=== PATIENT | female | born 1950 | race Caucasian/White ===

== ENCOUNTER 2016-08-30 15:42 | Inpatient (IN) | payer OTHER ==
--- NOTE | 2016-08-30 16:52 | EDPHY ---
H & P Stated Complaint: SOB Source: Patient Exam Limitations: No limitations - Medical/Surgical History Other PMH: CVA 8 years ago - Social History Smoking Status: Current every day smoker Tobacco Use: Greater than 1 pack/day Alcohol Use: Rarely Drug Use: Marijuana Time Seen by Provider: 08/30/16 16:15 HPI/ROS: CHIEF COMPLAINT: shortness of breath on exertion HISTORY OF PRESENT ILLNESS: 66-year-old female presents emergency department sent from her doctor's office for room air oxygen saturations of 85%. Patient reports shortness of breath for the past 3-4 days. Patient drove straight from [place] arriving 3 days ago. Patient reports a chronic cough from smoking that is worse over the past few weeks. She drove to [place] 1 month ago, was seen for a right lower leg pain in the emergency department in [place] 3 weeks ago and given naproxen, no studies were done. Patient smokes 1 pack of cigarettes per day, she has a history of a CVA 10-15 years ago, her only medication is simvastatin, she does not wear oxygen at home. Patient denies fevers or chills , no body aches, no nasal congestion, sore throat, ear pain. She denies chest pain. No orthopnea, no leg swelling. She denies nausea or vomiting, no abdominal pain, no diarrhea. REVIEW OF SYSTEMS: A comprehensive 10 point review of systems is otherwise negative aside from elements mentioned in the history of present illness. (Rochelle Carlton) - Medical/Surgical History PMH: CVA in 2004 (Rochelle Carlton) - Physical Exam Exam: Physical Exam Gen: Alert and Oriented, NAD HEENT: PERRL, moist mucous membranes NECK: no meningismus CV: Tachycardic rate and regular rhythm, systolic murmur PULM: Rhonchi and diminished throughout, worse on right ABDOMEN: soft, non tender to palpation, BS present BACK: No CVA tenderness NEURO: Neurologically grossly intact EXTREMITIES: normal appearing, no calf swelling, no tenderness to palpation, no cords, 2+ pedal pulses, sensation intact to light touch SKIN: no rash or break in skin on exposed skin PSYCH: answers questions appropriately. (Rochelle Carlton) Constitutional: Initial Vital Signs Temperature (C) 37 C 08/30/16 15:42 Heart Rate 110 H 08/30/16 15:42 Respiratory Rate 28 H 08/30/16 15:42 Blood Pressure 107/68 08/30/16 15:42 O2 Sat (%) 85 L 08/30/16 15:42 O2 Delivery Mode Room Air O2 (L/minute) 2 Allergies/Adverse Reactions: No Known Allergies Allergy (Unverified 03/09/14 12:03) Home Medications: Medication Instructions Recorded Aspirin [Aspirin 325 mg (OTC)] 325 mg PO DAILY 03/09/14 ALPRAZolam [Xanax 0.25 MG (*)] 0.25 mg PO BID PRN 08/30/16 Hydrocodone/Acetaminophen [[place] 1 each PO DAILY PRN 08/30/16 5/325 (*)] Simvastatin [Zocor] 40 mg PO HS 08/30/16 Venlafaxine HCl [Venlafaxine HCl 150 mg PO DAILY 08/30/16 ER] Medical Decision Making - Diagnostics Imaging: Discussed imaging studies w/ house calls nurse practitioner Radiologist, I viewed and interpreted images myself - Diagnostics EKG Interpretation: EKG with sinus tachycardia, rate 100, nonspecific T-wave abnormalities in anterior lateral leads, compared to EKG in 2014 there are no changes. (Rochelle Carlton) Imaging Results: Imaging Impressions Chest X-Ray 08/30/16 00:00 Impression: Dense right lower lobe consolidation and probable underlying effusion. Pneumonia versus mass versus atelectasis. ED Course/Re-evaluation: Patient comes in with an oxygen tank from her primary care doctor's office. She is on 3 L nasal cannula with oxygen saturations of 91%. IV established, CBC , chemistry panel, troponin, BMP, EKG, chest x-ray ordered. 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 1740- Pt admitted to Dr. Fong for a right lower lobe effusion and consolidation with hypoxia. CBC is unremarkable with a normal white count. CT chest- Impression: 1. Large right hilar mass contiguous with conglomerate mediastinal adenopathy, consistent with malignancy, most likely primary lung cancer. The bronchus intermedius is occluded, with complete right middle and lower lobe consolidation that could be related to atelectasis and/or postobstructive pneumonia. 2. Large right pleural effusion, with probable pulmonary edema in the right upper lobe, with patchy consolidation that could be related to pneumonia, asymmetric edema, or atelectasis. 3. No visible pulmonary embolus. 4. 4 mm left lower lobe nodule, new since 2007. Attention is recommended on follow up. I spoke with the patient and her daughter about these results, she will be admitted the hospital for further evaluation. 1 g of Invanz has been ordered. ( Rochelle Carlton) Differential Diagnosis: Diagnosis considered but not limited to pneumonia, effusion, malignancy, COPD ( Rochelle Carlton) Other Provider: This patient was evaluated and managed by the nurse practitioner. I have reviewed the chart and agree with the findings and plan of care as documented. ( Queenie Fernandez) - Data Points Laboratory Results: Laboratory Results 08/30/16 16:35 08/30/16 16:35 Medications Given: Discontinued Medications Ertapenem 1 gm/ Sodium (Chloride) 100 mls @ 200 mls/hr IV EDNOW ONE PRN Reason: Protocol Stop: 08/30/16 18:25 Last Admin: 08/30/16 18:38 Dose: 100 mls Departure - Departure Disposition: [facility] Inpatient Acute Clinical Impression: Mass of right lung, Hypoxia Condition: Fair
[2016-08-30] MEDS ORDERED: IOPAMIDOL (ISOVUE 370) 100 ML BTL IV ONE (17:05)
[2016-08-30 17:16] LABS: ANION GAP 9 mEq/L (8-16); CALCIUM 9.5 mg/dL (8.5-10.4); CARBON DIOXIDE 26 mEq/l (22-31); CHLORIDE 102 mEq/L (97-110); CREATININE 0.7 mg/dL (0.6-1.0); GLOMERULAR FILTRATION RATE > 60; GLUCOSE 122 mg/dL (70-100); POTASSIUM 4.2 mEq/L (3.5-5.2); SODIUM 137 mEq/L (134-144)
[2016-08-30 17:28] LABS: TROPONIN I < 0.012 ng/mL (0-0.034)
[2016-08-30] MEDS ORDERED: ERTAPENEM 1 GM in NS 100 ML IV ONE (17:56)
[2016-08-30 17:57] LABS: % IMMATURE GRANULYOCYTES 0.3 % (0.0-1.1); ABSOLUTE IMMATURE GRANULOCYTES 0.03 10^3/uL (0.00-0.10); ADD DIFF? NO; ADD MORPH? NO; ADD SCAN? NO; ATYPICAL LYMPHOCYTE FLAG 0 (0-99); FRAGMENT RBC FLAG 0 (0-99); HEMATOCRIT 43.3 % (38.0-47.0); HEMOGLOBIN 14.5 g/dL (12.6-16.3); LEFT SHIFT FLG 0 (0-99); LIPEMIA HEMOLYSIS FLAG 80 (0-99); MEAN CELL HEMOGLOBIN 29.5 pg (27.9-34.1); MEAN CELL HEMOGLOBIN CONCENTR. 33.5 g/dL (32.4-36.7); MEAN PLATELET VOLUME 9.4 fL (8.7-11.7); PLATELET CLUMPS FLAG 10 (0-99); PLATELET COUNT 428 10^3/uL (150-400); RED BLOOD CELL COUNT 4.92 10^6/uL (4.18-5.33); RED CELL DISTRIBUTION WIDTH 13.6 % (11.5-15.2)
[2016-08-30] MEDS ORDERED: ACETAMINOPHEN 325 MG TAB PO PRN (21:24)
[2016-08-30] MEDS ORDERED: ONDANSETRON DISINTEGRATING 4 MG TAB PO PRN (21:24)
[2016-08-30] MEDS ORDERED: ONDANSETRON 4 MG/2 ML VIAL IVP PRN (21:24)
[2016-08-30] MEDS ORDERED: ALPRAZolam 0.25 MG TAB PO PRN (21:26)
--- NOTE | 2016-08-30 22:06 | GHP ---
[f rep st] HISTORY AND PHYSICAL DATE OF ADMISSION: 08/30/2016 CHIEF COMPLAINT: Shortness of breath. HISTORY OF PRESENT ILLNESS: A 66-year-old female, not a lot in terms of past medical history, prese nting with 3-4 days of increasing dyspnea as well as cough. The cough was nonproductive. She had d yspnea on exertion. She did have about 10 pounds of weight loss, but she has been on a diet. She d id have some thigh pain early on, chronic thigh pain like a week ago in [place], and was given naproxe n. She did not have any ultrasounds done at that time. REVIEW OF SYSTEMS: A 10-point review of systems was obtained and was negative. PAST MEDICAL HISTORY: CVA 10-15 years ago. No residual defects. MEDICATIONS: Reviewed. SOCIAL HISTORY: Smokes 1 pack per day. FAMILY HISTORY: Mother had lung cancer, of lung cancer. PHYSICAL EXAM: VITAL SIGNS: Afebrile. Blood pressure is 138/84, heart rate 94, oxygen saturation 85% on room air, 94% on 3 L. GENERAL: The patient is well developed in no apparent distress. HEEN T: Nonicteric sclerae. Extraocular movements intact. Moist mucous membranes. NECK: Supple. No thyromegaly. LUNGS: Good effort. Decreased breath sounds in the right base. CARDIOVASCULAR: Reg ular rate and rhythm. No murmurs, gallops. ABDOMEN: Positive bowel sounds. Soft, nontender, and nondistended. No hepatosplenomegaly. EXTREMITIES: No clubbing, cyanosis, or edema. SKIN: Withou t rash. Warm, dry, intact. NEUROLOGIC: Alert and oriented x3. Moving all 4 extremities equally. PSYCHIATRIC: Normal affect. LABS: CBC is normal. Chemistry is essentially normal. CT scan of the chest shows a large, right h ilar mass with adenopathy and an occluded bronchus intermedius with complete right middle lobe and l ower lobe consolidation with a large, right pleural effusion. ASSESSMENT: A 66-year-old female with probable new diagnosis of lung cancer. 1. Lung mass with pleural effusions. Will go ahead and order thoracentesis which I think should he lp symptomatically. Will send cytology on this. I probably would have Pulmonology see in the [facility] to see if a bronchoscopy is indicated or to wait for the results of the thoracentesis. Probably also get Oncology to see the patient in the morning as well. 2. Right lower leg pain. Will get an ultrasound to rule out DVT. 3. Possible postobstructive pneumonia. Will continue Invanz. /[id number]/MODL
[2016-08-31 00:11] LABS: LACTATE DEHYDROGENASE 464 IU/L (313-618)
[2016-08-31 05:52] LABS: INR 1.09 (0.83-1.16)
[2016-08-31] MEDS ORDERED: NA BICARBONATE 50 MEQ/50 ML VIAL ONE (08:15)
[2016-08-31] MEDS ORDERED: LIDOCAINE 1% 300 MG/30 ML SDV ONE (08:15)
[2016-08-31 10:42] LABS: LD, PLEURAL FLUID 557 IU/L
[2016-08-31] MEDS: VENLAFAXINE XR 150 MG CAP PO SCH (11:22)
[2016-08-31] MEDS: HYDROCODONE/APAP 5/325 TAB PO PRN ×2 (11:26→23:42)
[2016-08-31] MEDS: NICOTINE 21 MG/24 HR PATCH TD SCH (12:44)
--- NOTE | 2016-08-31 13:53 | HOSPPROG ---
Hospitalist Progress Note Assessment/Plan: #Right lung mass: concerning for malignancy with significant tobacco hx. Thoracentesis today. Cytology pending. Appreciate Dr. James's consultation #Acute hypoxic resp failure: due to above. Denies infectious symptoms #Tobacco abuse: talya patch and gum #Weight loss: concern for cancer as above. #Diet: regular #DVT ppx: Lovenox #Disp: warrants inpatient admission with acute hypoxia, awaiting pleural studies Subjective: feeling less SOB Objective: Vital Signs Temp Pulse Resp BP Pulse Ox 36.4 C 96 14 125/73 H 93 08/31/16 11:44 08/31/16 11:44 08/31/16 11:44 08/31/16 11:44 08/31/16 11:44 Microbiology 08/31/16 09:20 Gram Stain - Final Thoracic Fluid - Aspirate PT 14.0 SEC (12.0-15.0) 08/31/16 04:15 INR 1.09 (0.83-1.16) 08/31/16 04:15 - Physical Exam Constitutional: no apparent distress Ears, Nose, Mouth, Throat: moist mucous membranes, hearing normal Cardiovascular: regular rate and rhythym Respiratory: other (diminished BS throughout. Poor air movenent. Decreased BS at right base) Gastrointestinal: normoactive bowel sounds Genitourinary: no bladder fullness Skin: warm Musculoskeletal: full muscle strength Neurologic: AAOx3, CN II-XII Intact Psychiatric: interacting appropriately ICD10 Worksheet Patient Problems: Problems Problem Status Onset Hypoxia Acute Mass of right lung Acute
--- NOTE | 2016-08-31 14:58 | GCON ---
[f rep st] CONSULTATION MEDICAL ONCOLOGY CONSULTATION. HISTORY OF PRESENT ILLNESS: The patient is a very pleasant 66-year-old female, whom I am asked to evaluate for suspected lung carcinoma. To review, patient, who is a long-time smoker, developed some increasing shortness of breath over the last 4 to 5 days. She has also had an increasing cough. This has been accompanied by about a 10-pound weight loss, although she notes she has been on a diet. She came to the emergency room. A chest x-ray showed dense right lower lobe consolidation and a probable underlying effusion. She then had a CT angiogram of the chest, which showed no evidence of clot. However, there was a large right hilar mass, contiguous with conglomerate mediastinal adenopathy, consistent with malignancy, most likely a primary lung cancer. The bronchus intermedius was occluded with complete right middle lobe and right lower lobe consolidation. There was also a large right pleural effusion. She had a thoracentesis done earlier this morning with removal of 1600 mL of serous fluid with some improvement in her respiratory status. PAST MEDICAL HISTORY: Significant for a cerebral vascular accident about 10 to 15 years ago. SOCIAL HISTORY: She has a [id number] smoking history. FAMILY HISTORY: Her mother had lung carcinoma. REVIEW OF SYSTEMS: Negative for 10 systems except as discussed in the HPI. PHYSICAL EXAMINATION: VITAL SIGNS: Blood pressure is 125/73, temperature is 97.6, heart rate is 96. HEENT: She is not icteric. Pharynx is unremarkable. LYMPHATICS: I detect no cervical, supraclavicular, axillary adenopathy. LUNGS : Diminished breath sounds in the right lung base. CARDIAC: Unremarkable. ABDOMEN: Benign. EXTREMITIES: Unremarkable. NEURO: Nonfocal. LABORATORY: Chemistry panel shows a glucose of 122. CBC is unremarkable except for a platelet count of 428,000. IMPRESSION: I think this constellation of symptoms is quite worrisome for primary lung cancer in this long-time smoker. I discussed this with the patient and her sister at length. We would like to review pleural fluid cytology. I also think it would be reasonable to do a bronchoscopy to see if she has an endobronchial lesion, both to determine that and to obtain additional tissue to see if we can test her for mutations, such as EGFR, ROS-1, EML4-ALK, and to check her PD-L1 status. I do not think she is a surgical candidate. Systemic therapy would probably be my initial treatment of choice. Palliative radiation therapy to try to clear her obstruction may be a reasonable consideration. I think she should have an MRI of the brain, and I will order that. She should probably have a PET scan as an outpatient. I would like to thank Dr. Leach for the opportunity to see this very pleasant patient in consultation. /[id number]/MODL MTDD
[2016-08-31] MEDS ORDERED: GADOBUTROL 10 ML VIAL IVP ONE (16:01)
[2016-08-31] MEDS: ENOXAPARIN 40 MG/0.4 ML SYR SC SCH (16:38)
--- NOTE | 2016-08-31 17:49 | GHP ---
[f rep st] HISTORY AND PHYSICAL DATE OF ADMISSION: 08/30/2016 REFERRING PHYSICIAN: Alix Leach MD REASON FOR REFERRAL: Evaluation and management of lung mass. HISTORY: The patient is a 66-year-old woman who denies any symptoms until she developed shortness o f breath 4 to 5 days ago, as well as an increasing cough. She had a 10-pound intentional weight los s. A chest x-ray showed dense right consolidation and a probable effusion. A CT scan of the chest showed a large mass, as well as a pleural effusion. She was admitted and had a thoracentesis done y esterday. Oncology was consulted and recommended further evaluation. The patient does not know that she feels any less short of breath since the thoracentesis, although she has not been very active since being admitted. PAST MEDICAL HISTORY: CVA about 10 to 15 years ago. MEDICATIONS: Mereta, alprazolam, venlafaxine, simvastatin, aspirin. ALLERGIES: None. SOCIAL HISTORY: The patient has a [id number] history of smoking, continues to smoke. FAMILY HISTORY: Positive for a history of lung cancer. REVIEW OF SYSTEMS: A 10-point review of systems adds nothing to the history of present illness. PHYSICAL EXAMINATION: GENERAL: The patient is awake, alert, in no acute distress. VITAL SIGNS: B lood pressure is 106/71 with a heart rate of 89. She is afebrile. Oxygen saturations are 96% on 6 L of oxygen. HEENT: Normocephalic and atraumatic. No icterus. NECK: No JVD. Trachea is midline . CHEST: Decreased breath sounds in the right lower lung. CARDIAC: Regular rate and rhythm witho ut murmur. ABDOMEN: Soft, nontender. Bowel sounds are present. EXTREMITIES: No clubbing, cyanos is, or edema. NEURO: The patient is awake, alert, and oriented. She has no gross motor or sensory deficits. LABORATORY: CBC is normal. Chemistry is normal with the exception of a mildly elevated glucose at 122. BNP is 168. An INR is 1.1. IMAGING: CT scan of the chest shows a large right hilar mass, extending from subcarinal area around the pulmonary artery into the right hilum. The right upper lobe bronchus is narrowed, and the bron chus intermedius is completely occluded. She has a large right pleural effusion. There is no pulmo nary embolism. Images reviewed. ASSESSMENT: Lung mass. This is likely bronchogenic carcinoma. The patient has already had a thora centesis with minimal symptomatic relief. This is not surprising, given that her lung is probably u nable to expand due to the endobronchial obstruction. Dr. James has seen the patient and recommende d bronchoscopy, both to determine the extent of the visible tumor, as well as to obtain tissue for a nalysis to determine if the patient would be a candidate for targeted antineoplastic therapy. I hav e discussed this recommendation with the patient, including the risks and benefits of bronchoscopy, and she agrees to proceed. RECOMMENDATION: Proceed with bronchoscopy with endobronchial biopsies tomorrow. The patient has be en made n.p.o. /[id number]/MODL
[2016-08-31] MEDS: ATORVASTATIN CALCIUM 20 MG TAB PO SCH (21:01)
[2016-09-01 05:12] LABS: ANION GAP 6 mEq/L (8-16); CALCIUM 8.7 mg/dL (8.5-10.4); CARBON DIOXIDE 28 mEq/l (22-31); CHLORIDE 104 mEq/L (97-110); CREATININE 0.6 mg/dL (0.6-1.0); GLOMERULAR FILTRATION RATE > 60; GLUCOSE 97 mg/dL (70-100); POTASSIUM 4.3 mEq/L (3.5-5.2); SODIUM 138 mEq/L (134-144)
[2016-09-01] MEDS: VENLAFAXINE XR 150 MG CAP PO SCH (07:43)
[2016-09-01] MEDS: HYDROCODONE/APAP 5/325 TAB PO PRN ×2 (07:43→21:42)
[2016-09-01] MEDS: NICOTINE 21 MG/24 HR PATCH TD SCH (07:44)
[2016-09-01] MEDS ORDERED: LIDOCAINE 2% JELLY 5 ML TUBE ONE (11:20)
[2016-09-01] MEDS ORDERED: ALBUTEROL 3 ML DEYVIAL ONE (11:20)
[2016-09-01] MEDS ORDERED: LIDOCAINE 1% 300 MG/30 ML SDV ONE (11:28)
[2016-09-01] MEDS ORDERED: MIDAZOLAM 2 MG/2 ML VIAL ONE (13:33)
[2016-09-01] MEDS ORDERED: fentaNYL 100 MCG/2 ML INJ ONE (13:34)
--- NOTE | 2016-09-01 14:30 | PDINTPN ---
Radiology Equipment Servicer Progress Note Assessment/Plan: Assessment: Lung Mass: Suspect bronchogenic Ca. Pleural effusion: Suspect malignant. S/p thoracentesis. Hypoxemia: Likely due to COPD, obstructing lung lesion. Tobacco abuse Plan: Bronchoscopy. She could potentially be discharged after bronchoscopy if clinically stable on oxygen. 09/01/16 14:29 Subjective: Feels about the same. Dyspnea not improved by thoracentesis. Objective: Vital Signs Temp Pulse Resp BP Pulse Ox 36.7 C 78 18 103/66 93 09/01/16 11:46 09/01/16 11:46 09/01/16 11:46 09/01/16 11:46 09/01/16 11:46 Microbiology 08/31/16 09:20 Gram Stain - Final Thoracic Fluid - Aspirate Laboratory Results 09/01/16 04:30 PT 14.0 SEC (12.0-15.0) 08/31/16 04:15 INR 1.09 (0.83-1.16) 08/31/16 04:15 Physical Exam - Physical Exam General Appearance: alert, no apparent distress EENT: normal ENT inspection Neck: normal inspection Respiratory: decreased breath sounds (right lower lung) Cardiac/Chest: regular rate, rhythm, No edema Abdomen: normal bowel sounds, non-tender, soft Skin: normal color, warm/dry Extremities: normal inspection Neuro/Psych: alert, normal mood/affect, oriented x 3 ICD10 Worksheet Patient Problems: Problems Problem Status Onset Hypoxia Acute Mass of right lung Acute
--- NOTE | 2016-09-01 14:37 | SOAPPROG ---
SOAP Progress Note Assessment/Plan: Assessment: 1. Lung cancer: mri brain without mets 2. pleural effusion: cytology pending Plan:Bronch today, could possibly go home to follow up as an outpt 09/01/16 14:35 Objective: Vital Signs Temp Pulse Resp BP Pulse Ox 98.0 F 78 18 103/66 93 09/01/16 11:46 09/01/16 11:46 09/01/16 11:46 09/01/16 11:46 09/01/16 11:46 Microbiology 08/31/16 09:20 Gram Stain - Final Thoracic Fluid - Aspirate Laboratory Results 09/01/16 04:30 PT 14.0 SEC (12.0-15.0) 08/31/16 04:15 INR 1.09 (0.83-1.16) 08/31/16 04:15 ICD10 Worksheet Patient Problems: Problems Problem Status Onset Hypoxia Acute Mass of right lung Acute
--- NOTE | 2016-09-01 15:06 | GPN ---
[f rep st] PROCEDURE NOTE DATE OF PROCEDURE: 09/01/2016 PROCEDURE PERFORMED: Flexible fiberoptic bronchoscopy. REASON FOR THE PROCEDURE: Lung mass with endobronchial lesion. PROCEDURE NOTE: The risks and benefits of the procedure were explained to the patient, who agreed t o proceed. The entire procedure was performed in the endoscopy suite with the patient under blood p ressure, EKG, and oximetry monitoring. It was my assessment that there was no risk of airborne infe ction from the procedure. After an appropriate timeout, the patient's oropharynx was anesthetized w ith topical Hurricaine spray, and a bite block was placed between her teeth. The bronchoscope was ad vanced through the bite block into the vocal cords, which moved normally. 1% lidocaine was used top ically on the airways for anesthesia. I advanced the bronchoscope through the vocal cords into the main trachea. I examined all the left-sided airways first and they were normal in appearance. I th en examined the right-sided airways. The alice was somewhat splayed with some submucosal edema. W ithin a centimeter of the main alice on the right side, there was an exophytic lesion along the med ial wall; this extended down into the bronchus intermedius and then around, which was completely occ luded, and it also partially occluded the right upper lobe bronchus, which was not intubated. Multi ple biopsies were taken of the mass with minimal bleeding. These were sent for histologic examinati on. The patient tolerated the procedure well, with oxygen saturations falling only to the upper 80s transiently. The patient received 2 mg of Versed and 100 mcg of fentanyl intravenously for analges ia and sedation. There were no complications apparent at the end of the procedure. /[id number]/MODL
[2016-09-01] MEDS: ATORVASTATIN CALCIUM 20 MG TAB PO SCH (20:54)
[2016-09-01 22:28] VITALS: RESP 16
--- NOTE | 2016-09-01 22:46 | HOSPPROG ---
Hospitalist Progress Note Assessment/Plan: #Right lung mass: concerning for malignancy with significant tobacco hx. Thoracentesis today. Cytology pending. -s/p bronch. Await path report. FU Dr. Greco. No brain metastases. #Acute hypoxic resp failure: due to above. Denies infectious symptoms. Oxygen at home #Tobacco abuse: talya patch and gum #Weight loss: concern for cancer as above. #Diet: regular #DVT ppx: Lovenox #Disp: warrants inpatient admission with acute hypoxia. Likely DC in morning Subjective: bronched today Objective: Vital Signs Temp Pulse Resp BP Pulse Ox 37.4 C 88 16 102/65 93 09/01/16 22:25 09/01/16 22:25 09/01/16 22:25 09/01/16 22:25 09/01/16 22:25 Microbiology 08/31/16 09:20 Gram Stain - Final Thoracic Fluid - Aspirate Laboratory Results 09/01/16 04:30 08/31/16 09/01/16 09/02/16 05:59 05:59 05:59 Intake Total 250 Balance 250 PT 14.0 SEC (12.0-15.0) 08/31/16 04:15 INR 1.09 (0.83-1.16) 08/31/16 04:15 - Physical Exam Constitutional: no apparent distress Eyes: PERRL Ears, Nose, Mouth, Throat: moist mucous membranes, other (raspy voice) Cardiovascular: regular rate and rhythym Respiratory: no respiratory distress, no rales or rhonchi, reduced air movement Gastrointestinal: normoactive bowel sounds, no palpable masses Genitourinary: no bladder fullness Musculoskeletal: full muscle strength Neurologic: AAOx3 Psychiatric: interacting appropriately ICD10 Worksheet Patient Problems: Problems Problem Status Onset Hypoxia Acute Mass of right lung Acute
[2016-09-02] MEDS: ENOXAPARIN 40 MG/0.4 ML SYR SC SCH (08:20)
[2016-09-02] MEDS: VENLAFAXINE XR 150 MG CAP PO SCH (08:22)
[2016-09-02] MEDS: NICOTINE 21 MG/24 HR PATCH TD SCH (08:22)
[2016-09-02 09:00] VITALS: BP 96/60; PULSE 101; TEMP 98.5
--- NOTE | 2016-09-02 12:15 | HOSPPROG ---
Hospitalist Progress Note Assessment/Plan: #Right lung mass: concerning for malignancy with significant tobacco hx. Thoracentesis today. Cytology pending. -s/p bronch. Await path report. FU Dr. Greco. No brain metastases. #Acute hypoxic resp failure: due to above. Denies infectious symptoms. Oxygen at home #Tobacco abuse: talya patch and gum #Weight loss: concern for cancer as above. #Diet: regular #Disp: DC today Subjective: less SOB and more energy today Objective: Vital Signs Temp Pulse Resp BP Pulse Ox 36.9 C 101 H 16 96/60 L 91 L 09/02/16 08:00 09/02/16 08:00 09/02/16 08:00 09/02/16 08:00 09/02/16 08:00 Microbiology 08/31/16 09:20 Gram Stain - Final Thoracic Fluid - Aspirate Laboratory Results 09/01/16 04:30 09/01/16 09/02/16 09/03/16 05:59 05:59 05:59 Intake Total 250 Balance 250 PT 14.0 SEC (12.0-15.0) 08/31/16 04:15 INR 1.09 (0.83-1.16) 08/31/16 04:15 - Physical Exam Constitutional: no apparent distress Eyes: PERRL Ears, Nose, Mouth, Throat: moist mucous membranes Cardiovascular: regular rate and rhythym, no murmur, rub, or gallop Respiratory: reduced air movement, other (becreased BS right base) Gastrointestinal: normoactive bowel sounds, soft, non-tender abdomen Skin: warm Musculoskeletal: full muscle strength, no joint effusions Neurologic: CN II-XII Intact Psychiatric: interacting appropriately ICD10 Worksheet Patient Problems: Problems Problem Status Onset Hypoxia Acute Mass of right lung Acute
--- NOTE | 2016-09-02 12:34 | GDS ---
[f rep st] DISCHARGE SUMMARY DISCHARGE DIAGNOSES: 1. Right hilar lung mass, suspicious for malignancy. 2. Tobacco abuse. 3. Acute hypoxic respiratory failure. HISTORY OF PRESENT ILLNESS: Patient is a pleasant 66-year-old female with significant tobacco histo ry, presenting with 3-4 days of increasing dyspnea and cough that was nonproductive. Dyspnea is wor se with exertion. She also reports a 10 pound weight loss. No fevers, chills or sweats. ASSESSMENT AND PLAN: 1. Right hilar lung mass/pleural effusion, large hilar mass, suspected malignancy given underlying tobacco history. Underwent thoracentesis as well as bronchoscopy. Cytology and biopsies pending. Symptoms improved with thoracentesis. 2. Acute hypoxic respiratory failure: Multifactorial with pleural effusion, mass, as well as likel y chronic obstructive pulmonary disease. Patient is feeling better, but will be discharged on oxyge n as well as albuterol. 3. Tobacco abuse. Patient does want to quit, written for NicoDerm patch. DISPOSITION: Patient stable for discharge. STUDIES PENDIN. Cytology. 2. Bronchial biopsy. FOLLOWUP: Dr. James, with Oncology. /[id number]/MODL
[2016-09-02] MEDS: HYDROCODONE/APAP 5/325 TAB PO PRN (12:52)
[2016-09-02 13:20] VITALS: O2SAT 86
== END 2016-09-02 15:25 | disposition home or self-care (01) | DRG 166 ==
LOC: F3E 20:06
PROVIDERS: ADMIT Internal Medicine; ATTEND Internal Medicine
PROC: 0W993ZX Drainage of Right Pleural Cavity, Percutaneous Approach, Diagnostic (ICD-10-PCS; 2016-08-31)
PROC: 0BBF8ZX Excision of Right Lower Lung Lobe, Via Natural or Artificial Opening Endoscopic, Diagnostic (ICD-10-PCS; principal; 2016-09-01 13:00)
DX: C34.91 Malignant neoplasm of unspecified part of right bronchus or lung (principal); J96.01 Acute respiratory failure with hypoxia; J90 Pleural effusion, not elsewhere classified; Z72.0 Tobacco use
CPT/HCPCS: 96374; A9585; J0171; J1335; J1650; J2250; J3010; Q9967

== ENCOUNTER 2016-09-28 20:47 | Inpatient (IN) | payer OTHER ==
--- NOTE | 2016-09-28 21:03 | CPEKG ---
Heart Rate: Invalid RR Interval: Invalid P-R Interval: Invalid QRSD Interval: Invalid QTC Interval: Invalid P [place]: 0 QRS [place]: Invalid EKG Severity - ABNORMAL ECG - EKG Impression: Sinus rhythm Electronically Signed By: Сергей Gaytan 29-Sep-2016 10:53:17
[2016-09-28 21:36] LABS: ADD DIFF? YES; ADD MORPH? NO; ADD SCAN? YES; ATYPICAL LYMPHOCYTE FLAG 0 (0-99); FRAGMENT RBC FLAG 0 (0-99); HEMATOCRIT 32.9 % (38.0-47.0); HEMOGLOBIN 11.2 g/dL (12.6-16.3); LIPEMIA HEMOLYSIS FLAG 90 (0-99); MEAN CELL HEMOGLOBIN 28.6 pg (27.9-34.1); MEAN CELL VOLUME 83.9 fL (81.5-99.8); MEAN PLATELET VOLUME 10.9 fL (8.7-11.7); PLATELET CLUMPS FLAG 10 (0-99); PLATELET COUNT 59 10^3/uL (150-400); RED BLOOD CELL COUNT 3.92 10^6/uL (4.18-5.33); RED CELL DISTRIBUTION WIDTH 13.4 % (11.5-15.2)
[2016-09-28 21:42] LABS: ANION GAP 15 mEq/L (8-16); CALCIUM 8.4 mg/dL (8.5-10.4); CARBON DIOXIDE 28 mEq/l (22-31); CHLORIDE 85 mEq/L (97-110); CREATININE 1.1 mg/dL (0.6-1.0); GLOMERULAR FILTRATION RATE 50; GLUCOSE 124 mg/dL (70-100); LEFT SHIFT FLG 230 (0-99); POTASSIUM 3.9 mEq/L (3.5-5.2); SODIUM 128 mEq/L (134-144)
[2016-09-28 21:45] LABS: INR 1.47 (0.83-1.16); PROTIME(PATIENT) 17.8 SEC (12.0-15.0)
[2016-09-28 21:46] LABS: APTT 37.5 SEC (23.0-38.0)
[2016-09-28 21:54] LABS: TROPONIN I < 0.012 ng/mL (0-0.034)
[2016-09-28] MEDS ORDERED: CEFEPIME HCL 2 GM in D5W 100 ML IV ONE (22:19)
[2016-09-28] MEDS ORDERED: NS 2,300 ML IV ONE (22:19)
--- NOTE | 2016-09-28 22:21 | EDPHY ---
H & P Stated Complaint: SOB, AMS Time Seen by Provider: 09/28/16 22:05 HPI/ROS: HPI The patient presents with shortness of breath which has been worse over the last several days. She is brought in by her daughter after she fell tonight and was on the ground for 2-3 hours, unable to get up because she was too weak. She just began chemotherapy on September 18. She is not coughing. The patient says that she feels confused. She is generally weak. She has felt hot at home , though does not have documented fever. Yesterday her T-max was 99. she has not been eating much and feels fatigued. She recently started using a walker REVIEW OF SYSTEMS Constitutional: Subjective fever Eyes: No discharge. ENT: No sore throat. Cardiovascular: No chest pain, no palpitations. Respiratory: see HPI Gastrointestinal: No abdominal pain, no vomiting. Genitourinary: No hematuria. Musculoskeletal: No back pain. Skin: No rashes. Neurological: No headache. PMHx: COPD, recent diagnosis of lung cancer on chemotherapy, followed by Dr James on 3 L of home O2 Soc Hx: heavy smoker PHYSICAL General Appearance: Tired appearing, lying in the gurney Eyes: Pupils equal and round no pallor or injection ENT, Mouth: mucous membranes dry, oral thrush is present, superior dental implants are dislocated inferiorly Respiratory: retractions, tachypnea, decreased breath sounds throughout right lung centeno Cardiovascular: tachycardic rate with regular rhythm Gastrointestinal: Abdomen is soft and non-tender, no masses, bowel sounds normal Neurological: A&O, moves all extremities Skin: Warm and dry, no rashes Musculoskeletal: Neck is supple non tender Extremities: symmetrical, full range of motion Psychiatric: Patient is oriented X 3, there is no agitation Source: Patient, Family Exam Limitations: Clinical condition - Personal History Current Tetanus/Diphtheria Vaccine: Yes Current Tetanus Diphtheria and Acellular Pertussis (TDAP): Yes - Medical/Surgical History Hx Asthma: No Hx Chronic Respiratory Disease: No Hx Diabetes: No Hx Cardiac Disease: No Hx Renal Disease: No Hx Cirrhosis: No Hx Alcoholism: No Hx HIV/AIDS: No Hx Splenectomy or Spleen Trauma: No Other PMH: CVA 8 years ago, Lung CA - Social History Smoking Status: Current every day smoker Constitutional: Initial Vital Signs Temperature (C) 37 C 09/28/16 20:48 Heart Rate 131 H 09/28/16 20:48 Respiratory Rate 30 H 09/28/16 20:48 Blood Pressure 104/74 09/28/16 20:48 O2 Sat (%) 84 L 09/28/16 20:48 O2 Delivery Mode Oxymizer O2 (L/minute) 15 Allergies/Adverse Reactions: No Known Allergies Allergy (Unverified 09/28/16 20:48) Home Medications: Medication Instructions Recorded Aspirin [Aspirin 325 mg (*)] 325 mg PO DAILY 03/09/14 ALPRAZolam [Xanax 0.25 MG (*)] 0.25 mg PO BID PRN 08/30/16 Hydrocodone/Acetaminophen [[place] 1 each PO DAILY PRN 08/30/16 (*)] Simvastatin [Zocor] 40 mg PO HS 08/30/16 Venlafaxine HCl [Venlafaxine HCl 150 mg PO DAILY 08/30/16 ER] Albuterol [Proventil Inhaler HFA 1 - 2 puffs IH Q4H #1 mdi 09/02/16 (*)] Nicotine [Nicoderm Cq 21 mg (*)] 21 mg TD DAILY #30 patch 09/02/16 Medical Decision Making - Diagnostics EKG Interpretation: EKG: Complete interpretation has been separately recorded in the [email or web address] archive. Summary impression: SVT with rate of 164 Imaging Results: Imaging Impressions Chest X-Ray 09/28/16 21:29 Impression: Increasing right pleural effusion and possible new right upper lobe pneumonia. Head CT 09/28/16 22:39 Impression: 1. No acute posttraumatic abnormality identified. 2. 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 3. No evidence of intracranial metastatic disease. Results discussed with Dr. Painting. General information for patients regarding this examination can be found at [email or web address]. If you have questions or comments about this report, please contact me at (hospital) or [phone] (cell). Imaging: Discussed imaging studies w/ call center nurse Radiologist Procedures: PROCEDURAL SEDATION Procedure: Procedural sedation. Indication: Emergent electrical cardioversion The patient is an appropriate candidate to tolerate procedural sedation. The patient's vital signs and mental status are appropriate. The risks, benefits and alternatives of the sedation were discussed with the patient. The patient is ASA classification 3. The patient's Mallampati airway score was 1 and the patient did meet the 3-3-2 airway measurements. A time out was completed. The patient was sedated with etomidate 10 mg IV. The patient was monitored with continuous pulse oximetry, playground monitor and end tidal CO2. There were no complications and no significant hypoxemia. I performed both the sedation and the procedure. The total time I spent at the bedside during the procedural sedation was 10 minutes. The patient was examined after the procedural sedation and has returned to their pre-sedation baseline with normal vital signs and a normal examination. Procedure: Electrical cardioversion. The patient was electrically cardioverted for atrial fibrillation with RVR with hypotension. The patient was on a continuous secured entrance monitor, with airway equipment at the bedside. The patient was on continuous pulse oximetry. The cardioversion was attempted with 150 joules biphasic current. The cardioversion was successful. The patient tolerated the procedure well with no complications. The procedure was performed by myself. Differential Diagnosis: This is a 66-year-old female, recent diagnosis of lung cancer who started on chemotherapy September 18, who now presents with worsening shortness of breath, confusion, weakness. On arrival, she is hypoxic, tachypneic, tachycardic and slightly hypotensive. She is not febrile. She is started on IV fluids, lactate drawn and is 1.4, blood cultures are pending. Chest x-ray shows reaccumulated right-sided pleural effusion with possible pneumonia. Because of this, she is given antibiotics, broad-spectrum given risk of neutropenia. I consulted with Dr. Asencio, waterfront director for Dr. James the patient's primary oncologist. We discussed treatment for possible sepsis and broad-spectrum antibiotics given her neutropenia. The patient improved after IV fluids and began to feel better. She went to CT scan for CT scan of her brain given her confusion and lung cancer, when she returned, she was in supraventricular tachycardia with a rate of about 170. She was given adenosine, several doses, though did not convert. As I discussed the case with Dr. Gaytan of Cardiology and we agreed that she is likely in atrial fibrillation with rapid ventricular response. She was given a dose of diltiazem with improvement of her heart rate from the 170s to 140s, however her blood pressure dropped was in the 60 systolic. She felt dizzy with this. Thus, decision was made to perform cardioversion. She converted with 150 joules biphasic. After this, she felt much better. I consulted with the hospitalist Dr. Lino, who will admit the patient to the hospital. Differential diagnoses considered during this patient's ER visit include sepsis , pleural effusion, pneumonia, UTI, encephalopathy, brain metastases, SVT, atrial fibrillation with RVR, acute decompensated heart failure. Critical Care Time: CRITICAL CARE Critical care time spent by me, Dr. Painting, exclusively with this patient was 90 minutes, exclusive of PA time and exclusive of procedures. The organ system at risk was cardiac, respiratory and I gave IV fluids, antibiotics, adenosine, diltiazem, perform synchronized cardioversion to prevent worsening of the patients condition. - Data Points Laboratory Results: Laboratory Results 09/28/16 21:15 09/28/16 21:15 09/29/16 09/28/16 09/28/16 00:35 22:25 21:15 WBC RBC Hgb Hct MCV MCH MCHC RDW Plt Count MPV Neut % (Auto) Lymph % (Auto) Turner % (Auto) Eos % (Auto) Baso % (Auto) Nucleat RBC Rel Count Absolute Neuts (auto) Absolute Lymphs (auto) Absolute Monos (auto) Absolute Eos (auto) Absolute Basos (auto) Absolute Nucleated RBC Immature Gran % Seg Neutrophils % Band Neutrophils % Lymphocytes % Monocytes % Metamyelocytes % Immature Gran # Absolute Seg Neuts Absolute Band Neuts Absolute Lymphocytes Absolute Monocytes Absolute Metamyelocyte Atypical Lymphocytes Platelet Estimate Hypochromasia Smear Review By PT INR APTT VBG Lactic Acid 1.3 mmol/L mmol/L (0.7-2.1) Sodium 128 mEq/L L mEq/L (134-144) Potassium 3.9 mEq/L mEq/L (3.5-5.2) Chloride 85 mEq/L L mEq/L (97-110) Carbon Dioxide 28 mEq/l mEq/l (22-31) Anion Gap 15 mEq/L mEq/L (8-16) BUN 40 mg/dL H mg/dL (7-23) Creatinine 1.1 mg/dL H mg/dL (0.6-1.0) Estimated GFR 50 Glucose 124 mg/dL H mg/dL (70-100) Calcium 8.4 mg/dL L mg/dL (8.5-10.4) Lactate Dehydrogenase 507 IU/L IU/L (313-618) Troponin I < 0.012 ng/mL ng/mL (0-0.034) NT-Pro-B Natriuret Pep 549 pg/mL H pg/mL (0-125) 09/28/16 09/28/16 21:15 21:15 WBC 0.44 10^3/uL L* 10^3/uL (3.80-9.50) RBC 3.92 10^6/uL L 10^6/uL (4.18-5.33) Hgb 11.2 g/dL L g/dL (12.6-16.3) Hct 32.9 % L % (38.0-47.0) MCV 83.9 fL fL (81.5-99.8) MCH 28.6 pg pg (27.9-34.1) MCHC 34.0 g/dL g/dL (32.4-36.7) RDW 13.4 % % (11.5-15.2) Plt Count 59 10^3/uL L 10^3/uL (150-400) MPV 10.9 fL fL (8.7-11.7) Neut % (Auto) Not Reported Lymph % (Auto) Not Reported Turner % (Auto) Not Reported Eos % (Auto) Not Reported Baso % (Auto) Not Reported Nucleat RBC Rel Count 0.0 % % (0.0-0.2) Absolute Neuts (auto) Not Reported Absolute Lymphs (auto) Not Reported Absolute Monos (auto) Not Reported Absolute Eos (auto) Not Reported Absolute Basos (auto) Not Reported Absolute Nucleated RBC 0.00 10^3/uL 10^3/uL (0-0.01) Immature Gran % Not Reported Seg Neutrophils % 15 % % Band Neutrophils % 13 % % Lymphocytes % 59 % % Monocytes % 12 % % Metamyelocytes % 1 % % Immature Gran # Not Reported Absolute Seg Neuts 0.07 10^/uL L 10^/uL (1.70-6.50) Absolute Band Neuts 0.06 10^3/uL 10^3/uL (0.00-0.70) Absolute Lymphocytes 0.26 10^3/uL L 10^3/uL (1.00-3.00) Absolute Monocytes 0.05 10^3/uL L 10^3/uL (0.30-0.80) Absolute Metamyelocyte 0.00 10^3/mL 10^3/mL (0.00-0.00) Atypical Lymphocytes 3+ H Platelet Estimate DECREASED L (ADEQ) Hypochromasia 1+ H Smear Review By Pending PT 17.8 SEC H SEC (12.0-15.0) INR 1.47 H (0.83-1.16) APTT 37.5 SEC SEC (23.0-38.0) VBG Lactic Acid Sodium Potassium Chloride Carbon Dioxide Anion Gap BUN Creatinine Estimated GFR Glucose Calcium Lactate Dehydrogenase Troponin I NT-Pro-B Natriuret Pep Medications Given: Discontinued Medications Adenosine (Adenosine) 6 mg IVP EDNOW ONE Stop: 09/28/16 23:45 Last Admin: 09/28/16 23:28 Dose: 6 mg Adenosine (Adenosine) 12 mg IVP EDNOW ONE Stop: 09/28/16 23:46 Last Admin: 09/28/16 23:35 Dose: 12 mg Adenosine (Adenosine) 12 mg IVP EDNOW ONE Stop: 09/28/16 23:46 Last Admin: 09/28/16 23:41 Dose: 12 mg Adenosine (Adenosine) 18 mg IVP EDNOW ONE Stop: 09/29/16 00:01 Last Admin: 09/28/16 23:57 Dose: 18 mg Diltiazem HCl (Cardizem 25 Mg/5 Ml Vial) 15 mg IVP EDNOW ONE Stop: 09/29/16 00:12 Last Admin: 09/29/16 00:30 Dose: Not Given Diltiazem HCl (Cardizem 25 Mg/5 Ml Vial) 20 mg IVP EDNOW ONE Stop: 09/29/16 00:30 Last Admin: 09/29/16 00:28 Dose: 20 mg Etomidate (Etomidate) 10 mg IVP EDNOW ONE Stop: 09/29/16 00:42 Last Admin: 09/29/16 00:44 Dose: 10 mg Cefepime HCl 2 gm/ Dextrose 100 mls @ 200 mls/hr IV EDNOW ONE PRN Reason: Protocol Stop: 09/28/16 22:48 Last Admin: 09/28/16 23:05 Dose: 100 mls Sodium Chloride (Ns) 2,300 mls @ 4,600 mls/hr 30 ml/kg infuse over 30 min ( 2300 ml) IV EDNOW ONE PRN Reason: Protocol Stop: 09/28/16 22:48 Last Admin: 09/28/16 22:29 Dose: 2,300 mls Departure - Departure Disposition: [facility] Inpatient Acute Clinical Impression: Hypoxia, Mass of right lung, Oral thrush, Atrial fibrillation with RVR, Pleural effusion Pneumonia Qualifiers: Pneumonia type: due to unspecified organism Laterality: right Lung location: upper lobe of lung Qualified Code(s): J18.1 - Lobar pneumonia, unspecified organism Sepsis Qualifiers: Sepsis type: sepsis due to unspecified organism Qualified Code(s): A41.9 - Sepsis, unspecified organism Neutropenia Qualifiers: Neutropenia type: secondary to cancer chemotherapy Qualified Code(s): D70.1 - Agranulocytosis secondary to cancer chemotherapy Condition: Serious
[2016-09-28 22:40] LABS: HYPOCHROMIA 1+; PLATELET ESTIMATE DECREASED (ADEQ)
[2016-09-28 22:50] LABS: SCAN POSITIVE
[2016-09-28] MEDS ORDERED: ONDANSETRON 4 MG/2 ML VIAL ONE (23:06)
--- NOTE | 2016-09-28 23:09 | CPEKG ---
Heart Rate: 164 RR Interval: 366 P-R Interval: 72 QRSD Interval: 78 QT Interval: 292 QTC Interval: 483 P Erwin: 0 QRS Erwin: 83 T Wave Erwin: 44 EKG Severity - ABNORMAL ECG - EKG Impression: Atrial fibrillation with rapid ventricular response EKG Impression: BORDERLINE RIGHT AXIS DEVIATION Electronically Signed By: Сергей Gaytan 29-Sep-2016 00:12:12
[2016-09-28] MEDS ORDERED: ADENOSINE 6 MG/2 ML VIAL ONE ×4 (23:18→23:42)
[2016-09-28] MEDS ORDERED: ADENOSINE 6 MG/2 ML VIAL IVP ONE ×3 (23:44→23:45)
[2016-09-29] MEDS ORDERED: ADENOSINE 6 MG/2 ML VIAL IVP ONE
[2016-09-29] MEDS ORDERED: DILTIAZEM 25 MG/5 ML VIAL IVP ONE ×2 (00:11→00:29)
[2016-09-29] MEDS ORDERED: ETOMIDATE 40 MG/20 ML INJ ONE (00:28)
[2016-09-29] MEDS ORDERED: ETOMIDATE 20 MG/10 ML VIAL IVP ONE (00:41)
--- NOTE | 2016-09-29 00:50 | CPEKG ---
Heart Rate: 105 RR Interval: 571 P-R Interval: 124 QRSD Interval: 86 QT Interval: 356 QTC Interval: 471 P Shelton: 60 QRS Shelton: 78 T Wave Shelton: 44 EKG Severity - OTHERWISE NORMAL ECG - EKG Impression: SINUS TACHYCARDIA Electronically Signed By: Сергей Gaytan 29-Sep-2016 10:53:30
[2016-09-29] MEDS ORDERED: ALBUTEROL 3 ML DEYVIAL IH PRN (02:03)
[2016-09-29] MEDS ORDERED: ACETAMINOPHEN 325 MG TAB PO PRN (02:03)
[2016-09-29] MEDS ORDERED: ONDANSETRON DISINTEGRATING 4 MG TAB PO PRN (02:03)
[2016-09-29] MEDS ORDERED: ONDANSETRON 4 MG/2 ML VIAL IVP PRN (02:03)
[2016-09-29] MEDS ORDERED: NS 1,000 ML IV ONE (02:03)
[2016-09-29] MEDS ORDERED: NS 1,000 ML IV SCH (02:15)
[2016-09-29 02:43] LABS: LACTATE DEHYDROGENASE 507 IU/L (313-618)
--- NOTE | 2016-09-29 03:35 | GHP ---
[f rep st] HISTORY AND PHYSICAL DATE OF ADMISSION: 09/29/2016 CHIEF COMPLAINT: Shortness of breath and confusion. HISTORY OF PRESENT ILLNESS: A 66-year-old female with a recent hospitalization on 08/30/2016 where she was found to have acute hypoxic respiratory failure and a right-sided pleural effusion. Effusio n was tapped. Malignant cells were identified. I was suspicious for a lung primary malignancy. Julian cam was followed on the outside after disposition and was initiated on chemotherapy. She is now 1 week out from her most recent treatment. Reports that she had been tolerating her chemotherapy wel l, but in the last few days, noted increasing anorexia, lethargy, weakness, a couple of falls due to instability, and progressing shortness of breath with some cough that is mildly productive. Patien t noted subjective fevers at home. Denies chills. Denies abdominal pain, nausea, or vomiting. Aga in, says her oral intake has been low. Has been mildly constipated. No diarrhea. Denies dysuria o r hematuria. Denies any pain of the extremities or chest. PAST MEDICAL HISTORY: 1. Recent diagnosis of suspected bronchogenic carcinoma. 2. Malignant pleural effusion, status post thoracentesis on 08/31. 3. History of a CVA 10-15 years ago with no residual deficits. SOCIAL HISTORY: Patient quit smoking recently but had previous 1 pack per day usage. Denies alcoho l. Does use marijuana edibles to stimulate her appetite. FAMILY HISTORY: Mother had lung cancer, which she from. ADVANCED DIRECTIVES: The patient wishes to not be intubated. REVIEW OF SYSTEMS: A 10-point review of systems is negative with the exception of that reported in the HPI. PHYSICAL EXAMINATION: VITAL SIGNS: Blood pressure 93/61, heart rate in the 160s, respiratory rate 30, saturating 90% on 10 L Oxymizer, afebrile at presentation. GENERAL: This is a nourished-appear ing, middle-aged female, in no acute distress. HEENT: Notable for dry mucous membranes and denture s. Eye exam is negative for any icterus. CARDIAC: Patient is irregular and tachycardic on initial examination then regular rate and rhythm. PULMONARY: Diminished breath sounds on the right with r honchorous sounds anteriorly and posteriorly on the right. No wheezing is noted. GASTROINTESTINAL: Positive bowel sounds. Abdomen is soft and nontender. MUSCULOSKELETAL: Negative for any lower e xtremity edema. SKIN: Negative for any rashes. NEUROLOGIC: The patient does appear lethargic but is appropriately answering questions and is alert and oriented x3. PSYCHIATRIC: She is pleasant a nd cooperative on interview and examination. DATA: White count 0.44, last checked 7.6; hematocrit 32.9; platelet count of 59, last checked 330. INR 1.47. Sodium of 128. Creatinine 1.1, last checked 0.7. Troponin less than 0.012. BUN 40. C hest x-ray, which I personally reviewed and interpreted, shows enlarging right-sided pleural effusio n from previous, which was prior to her thoracentesis, suspected right-sided infiltrate also associa cora by Radiology. Noncontrast CT of the head, which I personally reviewed and interpreted, shows no acute bleeds or strokes. EKG, which I personally reviewed and interpreted, shows atrial fibrillati on with a ventricular rate of approximately 160. ASSESSMENT AND PLAN: This is a 66-year-old female presenting with lethargy and shortness of breath. 1. Atrial fibrillation with rapid ventricular response. Patient presented with heart rates in the 160s soon after arriving to the emergency department. She did drop her systolic blood pressures at the time and was emergently cardioverted. When re-evaluated after cardioversion, her heart rates we re regular and still mildly tachycardic. Will fluid resuscitate the patient as I suspect she does h ave sepsis from a pulmonary source and monitor on telemetry. Do not suspect she will need additiona l rate control medications after appropriate fluid resuscitation. Will monitor closely. 2. Sepsis. Patient is presenting neutropenic with tachycardia. Presumed source is pulmonary. As she has received recent chemotherapy, will cover her with cefepime and vancomycin until we have bloo d cultures that return back negative. Have additionally ordered sputum cultures. Will aggressively fluid resuscitate and follow culture data. 3. Acute kidney injury secondary to hypovolemia. Will fluid resuscitate with normal saline and rec heck in the morning. 4. Recurrent malignant pleural effusion. Will again order an ultrasound thoracentesis and follow t he patient's clinical progress. 5. Healthcare-associated pneumonia in the setting of neutropenia. Will cover as described above wi th cefepime and vancomycin until culture data is back. Will additionally treat with inhaled beta ag onalfonso and Yolieb as needed. 6. Acute hypoxic respiratory failure on chronic. Suspect recurrence of the patient's malignant ple ural effusion with additional infiltrate. Will treat both and follow. 7. Pancytopenia secondary to chemotherapy. Patient has had marked drops in all her cell lines. Wi ll recheck her counts in the morning and treat with broader spectrum antibiotics than simply communi ty acquired. 8. Prophylaxis with Lovenox. 9. Diet regular. DISPOSITION: Expecting greater than 2 midnights as patient is presenting septic, neutropenic, with healthcare-associated pneumonia, and atrial fibrillation with rapid ventricular response requiring c ardioversion. Have discussed the case with the emergency room physician. Patient will be triaged t o the PCU for cardiac monitoring and aggressive treatment of sepsis in the setting of chemotherapy-i nduced neutropenia. /[id number]/MODL
[2016-09-29] MEDS ORDERED: DILTIAZEM 125 MG in D5W 125 ML IV SCH (04:00)
[2016-09-29] MEDS: VANCOMYCIN 1.5 GM in D5W 250 ML IV SCH (04:13)
[2016-09-29 04:16] LABS: ADD MORPH? NO; ATYPICAL LYMPHOCYTE FLAG 0 (0-99); FRAGMENT RBC FLAG 0 (0-99); HEMATOCRIT 27.6 % (38.0-47.0); HEMOGLOBIN 9.2 g/dL (12.6-16.3); LIPEMIA HEMOLYSIS FLAG 80 (0-99); MEAN CELL HEMOGLOBIN 28.6 pg (27.9-34.1); MEAN CELL HEMOGLOBIN CONCENTR. 33.3 g/dL (32.4-36.7); MEAN CELL VOLUME 85.7 fL (81.5-99.8); MEAN PLATELET VOLUME 11.3 fL (8.7-11.7); PLATELET CLUMPS FLAG 30 (0-99); PLATELET COUNT 52 10^3/uL (150-400); RED BLOOD CELL COUNT 3.22 10^6/uL (4.18-5.33); RED CELL DISTRIBUTION WIDTH 13.5 % (11.5-15.2)
[2016-09-29 04:20] LABS: LEFT SHIFT FLG 260 (0-99)
[2016-09-29 04:20] LABS: COLOR AMBER; LEUKOCYTE ESTERASE,URINE NEGATIVE (NEGATIVE); NITRITE,URINE NEGATIVE (NEGATIVE)
[2016-09-29 04:23] LABS: ADD SCAN? NO
[2016-09-29 04:26] LABS: ADD DIFF? NO
[2016-09-29 04:31] LABS: BACTERIA 1+ /hpf (NONE SEEN)
[2016-09-29 05:05] LABS: ANION GAP 11 mEq/L (8-16); CALCIUM 7.5 mg/dL (8.5-10.4); CARBON DIOXIDE 22 mEq/l (22-31); CHLORIDE 97 mEq/L (97-110); GLOMERULAR FILTRATION RATE 56; GLUCOSE 122 mg/dL (70-100); SODIUM 130 mEq/L (134-144)
[2016-09-29] MEDS: guaiFENesin 600 MG TAB.ER PO SCH ×3 (05:11→20:02)
[2016-09-29] MEDS: CEFEPIME HCL 2 GM in D5W 100 ML IV SCH ×4 (05:57→21:09)
[2016-09-29] MEDS ORDERED: IPRATROPIUM/ALBUTEROL 3 ML DEYVIAL IH SCH (06:00)
[2016-09-29] MEDS ORDERED: ENOXAPARIN 40 MG/0.4 ML SYR SC SCH (09:00)
[2016-09-29] MEDS ORDERED: ALTEPLASE 2 MG VIAL IVP PRN (10:43)
[2016-09-29] MEDS ORDERED: NS 500 ML IV ONE (10:45)
[2016-09-29] MEDS ORDERED: AMIODARONE HCL 200 ML IV ONE (10:46)
[2016-09-29] MEDS ORDERED: AMIODARONE HCL 100 ML IV ONE (10:46)
[2016-09-29] MEDS ORDERED: AMIODARONE HCL 540 MG in D5W 300 ML IV ONE ×2 (10:46→17:00)
[2016-09-29] MEDS: LEVALBUTEROL 1.25 MG/3 ML DEYVIAL IH SCH ×3 (11:29→22:50)
--- NOTE | 2016-09-29 11:42 | ECHO ---
[id number] + + [address] : : [place] [address] : : [phone] + Adult Echocardiographic Report + --+ :Name: Jesse CORRIGAN Date: 09/29/2016 10:15 AM : : Hospital Admission Number: [id number] Location: 2 49: :: 1950 Gender: Female Height: 67 in : :Age: 66 yrs Race: HARITHA,PTKIRSTEN,OT Weight: 172 lb : :Reason For Study: Eval LV Fx : : BSA: 1.9 meters2 : :History: Lung CA, Acute Hypotension, New onset of Atrial : :Fibrillation, STAT : + --+ MMode/2D Measurements \T\ Calculations IVSd: 0.85 cm LVIDd: 4.7 cm FS: 36.6 % Ao root diam: 2.3 cm LVPWd: 1.0 cm LVIDs: 3.0 cm EDV(Teich): 103.9 ml ACS: 1.8 cm ESV(Teich): 35.0 ml EF(Teich): 66.3 % Normal Measurement Values: + + :LVIDd (3.5-5.7cm) IVSd (0.6-1.1cm) LVPWd (0.6-1.1cm) Aortic Root (2.0-3.7cm)Left Atrium (1.5-4.0cm): :LV Vol(d) (76-115ml) LV Vol(s) (29-48ml) Ejec Fraction (50-65%)PV Tyson (0.6- 1.2m/s) TV Tyson (0.4-1.0m/s) : :MV E Tyson (0.8-1.0m/s)MV A Tyson (0.3-1.0m/s)LVOT Tyson (0.7-1.2m/s) Asc Ao Tyson ( 0.9-1.8m/s) : + + Doppler Measurements \T\ Calculations MV E max tyson: Ao V2 max: LV V1 max: MR max tyson: 94.3 cm/sec 159.0 cm/sec 105.0 cm/sec 416.0 cm/sec Ao max PG: LV V1 max PG: MR max P.1 mmHg 4.4 mmHg 69.2 mmHg PA V2 max: TR max tyson: 106.0 cm/sec 269.0 cm/sec PA max P.5 mmHg TR max P.9 mmHg RAP systole: 5.0 mmHg RVSP(TR): 33.9 mmHg Left Ventricle The left ventricle is normal in size. There is normal left ventricular wall thickness. The left ventricular ejection fraction is normal. The left ventricle is hyperdynamic. The rhythm is atrial fibrillation. Right Ventricle The right ventricle is normal in size and function. Atria The left atrium is mildly dilated. Right atrial size is normal. Mitral Valve The mitral valve is normal. There is no evidence of mitral valve prolapse. There is no mitral valve stenosis. There is mild mitral regurgitation. Tricuspid Valve There is trace to mild tricuspid regurgitation. Right ventricular systolic pressure is normal. Aortic Valve The aortic valve is normal in structure and function. There is no aortic stenosis. There is no aortic insufficiency. Pulmonic Valve The pulmonic valve is normal in structure and function. There is no pulmonic valvular regurgitation. Great Vessels The aortic root is normal size. Pericardium/Pleural There is no pericardial effusion. Conclusion A complete two-dimensional transthoracic echocardiogram was performed (2D, M-mode, Doppler and color flow Doppler). The left ventricle is normal in size. There is normal left ventricular wall thickness. The left ventricular ejection fraction is normal. The left ventricle is hyperdynamic. The rhythm is atrial fibrillation. The right ventricle is normal in size and function. The left atrium is mildly dilated. The mitral valve is normal. There is mild mitral regurgitation. There is trace to mild tricuspid regurgitation. Right ventricular systolic pressure is normal. The aortic valve is normal in structure and function. There is no pericardial effusion. Final Reading Physician: Jorge L Wilson, Annabelronicbladimir signed on 09/29/2016 11:41 AM Ordering Physician: JAY CARPIO Performed By: Ilya Schultz, LUCILLECS
[2016-09-29] MEDS ORDERED: ENOXAPARIN 40 MG/0.4 ML SYR SC ONE (11:47)
[2016-09-29] MEDS ORDERED: MIDAZOLAM 2 MG/2 ML VIAL ONE (12:09)
--- NOTE | 2016-09-29 12:41 | GCON ---
[f rep st] CONSULTATION CARDIOLOGY CONSULTATION REASON FOR CONSULTATION: I have been asked to do cardiovascular consultation in this patient who has complained of increasing shortness of breath. HISTORY OF PRESENT ILLNESS: The patient was admitted to the hospital on 09/29 with increasing shortness of breath. The patient has known respiratory issues, COPD, primary lung cancer, major abnormalities on chest x-ray with large right- sided pleural effusion and mass. The patient had been getting chemotherapy. She is very ill now, and she has atrial fibrillation with rapid ventricular response. She feels quite uncomfortable. She is short of breath. She is breathing 20 times a minute, and her blood pressure is dropping to 85. The patient has bronchogenic carcinoma. The patient has a malignant pleural effusion. The patient has had a thoracentesis 08/31/2016. The patient has had a stroke 15 years ago. The patient has COPD. The patient has a long smoking history. She does not have diabetes or known coronary disease. She has not had hypertension in the past. She tells me she has no family history of premature coronary disease. She has no history of hyperuricemia or obesity. Her lipids she is not clear about. PAST MEDICAL HISTORY: Includes a family history that is negative for premature coronary disease. REVIEW OF SYSTEMS: 10-point review of systems negative except as noted above and in the patient's chart. SOCIAL HISTORY: She was born in [place], [place]. She has been active all her life. She had smoked for a long time. She lives with her daughter now. She does not smoke currently. She does not drink significant amounts of alcohol. ALLERGIES: None. MEDICATIONS AT HOME: Nicotine, simvastatin, albuterol, hydrocodone, Xanax, aspirin. PHYSICAL EXAMINATION: VITAL SIGNS: Her blood pressure is 85/70, her heart rate is 125, her respiratory rate is 27. GENERAL: She is uncomfortable with her breathing and feels lightheaded. She is afebrile. NECK: Supple. CARDIOVASCULAR: S1, S2. Irregularly irregular. LUNGS: Rhonchi bilaterally. Decreased dullness to the bases, right more than the left. Prolonged expiration. ABDOMEN: Soft, nontender, without masses. CVA: No tenderness. SKIN: Age-related changes, and she is pale. PSYCH: No obvious anxiety or depression. Mental status is diminished. Chest x-ray shows huge right pleural effusion. Right upper lobe abnormality tumor versus pneumonia versus other causes. EKG: Rapid atrial fibrillation was reported in the emergency room yesterday. EKG today: Sinus tachycardia. Otherwise normal EKG today. Her echocardiogram shows normal left ventricular wall thickness, left ventricular ejection fraction normal, hyperdynamic LV, atrial fibrillation, mild dilatation of the left atrium, mitral valve normal, mild mitral regurgitation, mild TR with right ventricular systolic pressure being normal. No pericardial effusion. LABORATORY RESULTS: White count of 0.59, yesterday it was 0.44. Hematocrit was 32, now it is 27. Platelet count is 52 today, was . Sodium 130, potassium 4.0, chloride 97, CO2 of 22, BUN 40, creatinine 1, glucose 122, calcium 7.5. The patient's BNP was 549 on admission. ASSESSMENT AND PLAN: 1. Atrial fibrillation. 2. Acute respiratory failure. 3. Metastatic lung cancer. 4. Malignant pleural effusion. 5. Hyperlipidemia. 6. Weakness. I have talked to the patient. Earlier she had said she did not have hyperlipidemia, but she is on medication for that, and maybe that is why she says her cholesterol is not high. However, she is alert. She knows where she is. She knows she wants to be limited resuscitation with no intubation. She knows she is very ill, and she feels worse now that she has reverted back into atrial fibrillation. She is on amiodarone. What we are going to do is an urgent cardioversion. She has gotten a full dose of Lovenox. Because she is hemodynamically unstable and her respiratory status is diminishing in the face of this atrial arrhythmia, I am going to proceed to cardioversion without a transesophageal echocardiogram. That was already done yesterday without a LEATHA. The patient has very minimal respiratory reserves and does not want to be intubated so I do not want to be putting a probe into her esophagus with this precarious status and the inability to intubate her should things deteriorate. I certainly respect her wishes to not be intubated, and we will watch her very closely. We will get Anesthesia to come. The patient is fine for giving consent, and we will obtain consent. She has been fully anticoagulated. She will continue with full anticoagulation after this. She will continue on amiodarone, and we will watch closely. I have tried to find her daughter, and I will discuss the case with her. All questions have been answered. I have discussed this case with the hospitalist. /[id number]/MODL MTDD
--- NOTE | 2016-09-29 12:44 | CPEKG ---
Heart Rate: 93 RR Interval: 645 P-R Interval: 116 QRSD Interval: 84 QT Interval: 376 QTC Interval: 468 P [place]: 33 QRS [place]: 82 T Wave [place]: 67 EKG Severity - BORDERLINE ECG - EKG Impression: SINUS RHYTHM EKG Impression: ATRIAL PREMATURE COMPLEX EKG Impression: BORDERLINE RIGHT AXIS DEVIATION EKG Impression: BORDERLINE T ABNORMALITIES, ANT-LAT LEADS Electronically Signed By: Сергей Gaytan 29-Sep-2016 13:55:09
[2016-09-29] MEDS ORDERED: MIDAZOLAM 2 MG/2 ML VIAL IVP ONE (12:45)
[2016-09-29] MEDS ORDERED: IOPAMIDOL (ISOVUE 370) 100 ML BTL IV ONE (13:10)
[2016-09-29] MEDS ORDERED: ALBUMIN 5% 500 ML IV ONE (14:36)
[2016-09-29] MEDS: FILGRASTIM-SNDZ 480 MCG/0.8 ML SYR SC SCH (16:54)
[2016-09-29 17:15] LABS: LD, PLEURAL FLUID 674 IU/L
--- NOTE | 2016-09-29 17:51 | HOSPPROG ---
Hospitalist Progress Note Assessment/Plan: 40 minutes of total critical care time spent this patient, at bedside, coordinating care between her providers including Dr. Morejon, Dr. Schumacher, addressing the issues as outlined below: -patient transferred to intensive care unit for acute worsening of rapid ventricular response resulting in hypotension -she received 500 cc normal saline bolus and her systolic blood pressure marginally improved, heart rate marginally improved -was taken off of diltiazem drip and adjusted to amiodarone bolus -discussed with Dr. Schumacher, decision made to perform DC cardioversion without LEATHA and provide patient with systemic anticoagulation -patient was successfully cardioverted into normal sinus mechanism, which I have Re-checked on telemetry to ensure that she remains in normal sinus rhythm -given her high risk for venous thromboembolism in the setting malignancy, decision was made to pursue CT angiogram of the chest which fact ruled out pulmonary embolism but did demonstrate that her right mainstem bronchus is significantly compromised secondary to worsening malignancy and she has additional right-sided malignancy as well as moderate right-sided pleural effusion -therapeutic thoracentesis performed -will continue to address goals of care with the patient given that this situation is most likely terminal and the best possible outcome is palliation of symptoms -will continue on antibiotics for possible postobstructive pneumonia -will continue on high-flow oxygen given acute respiratory failure in the setting of above -patient remains critically ill with high risk of worsening morbidity and/or mortality Subjective: Patient reports feeling short of breath Objective: Vital Signs Temp Pulse Resp BP Pulse Ox 36.4 C 89 22 H 83/39 L 94 09/29/16 17:00 09/29/16 17:00 09/29/16 17:00 09/29/16 17:00 09/29/16 17:00 Laboratory Results 09/29/16 03:55 09/29/16 03:55 09/28/16 09/29/16 09/30/16 05:59 05:59 05:59 Intake Total 2300 3040 Output Total 200 1900 Balance 2100 1140 PT 17.8 SEC (12.0-15.0) H 09/28/16 21:15 INR 1.47 (0.83-1.16) H 09/28/16 21:15 - Physical Exam Constitutional: no apparent distress (Mild), chronically ill appearing, uncomfortable Cardiovascular: irregularly irregular, tachycardia, edema (Trace bilateral lower extremities) Respiratory: reduced air movement (Right mid and inferior lung), respiratory distress (Visible tachypnea), rhonchi (Inspiration on left), No expiratory wheeze Gastrointestinal: normoactive bowel sounds, soft, non-tender abdomen, no palpable masses Neurologic: AAOx3 Psychiatric: not encephalopathic, anxious, other (Follows verbal commands), No agitated ICD10 Worksheet Patient Problems: Problems Problem Status Onset Mass of right lung Acute Hypoxia Acute Pneumonia Acute Oral thrush Acute Atrial fibrillation with RVR Acute Pleural effusion Acute Sepsis Acute Neutropenia Acute
[2016-09-29] MEDS ORDERED: PROCHLORPERAZINE MALEATE 10 MG TAB PO PRN (18:05)
--- NOTE | 2016-09-29 18:42 | GCON ---
[f rep st] CONSULTATION ONCOLOGY CONSULTATION REASON FOR CONSULTATION: Small cell lung cancer, neutropenic fever. HISTORY OF PRESENT ILLNESS: The patient is a 66-year-old woman with newly diagnosed extensive stage small cell lung cancer. She presented in late August with shortness of breath, right hilar mass with mediastinal adenopathy, and large right pleural effusion. Biopsy was felt to be consistent with small cell lung cancer (positive TTF-1, synaptophysin, negative chromogranin). Pleural fluid cytology was suspicious for involvement. Brain MRI was negative. PET scan demonstrated right thoracic uptake with no evidence of extra-thoracic metastatic disease. She began chemotherapy 09/18/2016, with carboplatin, etoposide. She did not receive Neulasta. She was admitted overnight with increasing lethargy, weakness, shortness of breath, and a couple of falls yesterday. Her daughter reports a low-grade fever yesterday. No chills. She had atrial fibrillation with rapid ventricular response and was cardioverted due to hypotension in the ER. She went into sinus rhythm, but is back in atrial fibrillation. She was found to be neutropenic and, while she was not febrile, broad-spectrum antibiotics were initiated given her clinic status (cefepime, vancomycin). PAST MEDICAL HISTORY: 1. Small cell lung cancer as above. 2. History of CVA 10 to 15 years ago. SOCIAL HISTORY: A [id number] tobacco history. She recently quit. No alcohol use. She lives in [place]. Her daughter is close by. MEDICATIONS: Xanax p.r.n., Compazine p.r.n., simvastatin, venlafaxine. ALLERGIES: No known drug allergies. REVIEW OF SYSTEMS: CONSTITUTIONAL: Per HPI. HEENT: She fell yesterday and broke her dental implants. CARDIOVASCULAR: Per HPI. No lower extremity edema. No leg pain. RESPIRATORY: Per HPI. No pleurisy. GI: No nausea. She has been constipated. No abdominal pain. No perirectal pain. NEUROLOGIC: As above. Falls were attributed to instability. HEMATOLOGIC: No bleeding. PHYSICAL EXAM: VITAL SIGNS: Blood pressure 83/53, heart rate 134, respirations 25, 91% on 15 L, afebrile throughout her hospitalization. GENERAL : Fatigued, ill-appearing woman. She is currently having an echocardiogram. HEENT: Her dental implants are malaligned. CARDIOVASCULAR: Tachycardic. No pretibial edema. LUNGS: Coarse rhonchi throughout, decreased breath sounds on the right. ABDOMEN: Soft, nontender, nondistended. Normal bowel sounds. SKIN : No rashes, petechiae, ecchymoses. She does not have a port. NEUROLOGIC: Grossly nonfocal. LABORATORY DATA: WBC 0.5, ANC 0.3, hemoglobin 9.2, platelets 52,000. Sodium 130, potassium 4.0, chloride 97, bicarbonate 22, BUN 40, creatinine 1.0, calcium 7.5, no albumin available. Normal troponin. BNP 549. RADIOLOGIC DATA: Chest x-ray: Increased right pleural effusion from 08/31/2016 , and increased right upper lobe infiltrate. Head CT with no acute changes. Preliminary review with the surgical technician shows no pericardial effusion. IMPRESSION: 1. Neutropenia without fever: Empiric broad-spectrum antibiotics are appropriate given her clinical status. She may have a new right upper lobe pneumonia versus atelectasis related to the known right hilar mass. We will start G-CSF. 2. Right malignant pleural effusion: She may need therapeutic thoracentesis. We will defer to ICU team. 3. Atrial fibrillation with rapid ventricular response: Presently on diltiazem. Cardiology to see. 4. Cycle 1, day 12 carboplatin/etoposide. 5. She has requested limited resuscitation with no intubation. /[id number]/MODL MTDD
[2016-09-29] MEDS: ALPRAZolam 0.25 MG TAB PO PRN (20:02)
[2016-09-29] MEDS: ATORVASTATIN CALCIUM 20 MG TAB PO SCH (20:02)
[2016-09-29] MEDS: ENOXAPARIN 80 MG/0.8 ML SYR SC SCH (20:02)
[2016-09-30] MEDS ORDERED: HYDROCODONE/APAP 5/325 TAB PO PRN (01:38)
[2016-09-30] MEDS: VANCOMYCIN 1.5 GM in D5W 250 ML IV SCH (03:05)
[2016-09-30 03:14] LABS: ADD DIFF? YES; ADD MORPH? NO; ATYPICAL LYMPHOCYTE FLAG 0 (0-99); FRAGMENT RBC FLAG 0 (0-99); HEMOGLOBIN 8.1 g/dL (12.6-16.3); LIPEMIA HEMOLYSIS FLAG 80 (0-99); MEAN CELL HEMOGLOBIN 28.1 pg (27.9-34.1); MEAN CELL HEMOGLOBIN CONCENTR. 32.4 g/dL (32.4-36.7); MEAN CELL VOLUME 86.8 fL (81.5-99.8); MEAN PLATELET VOLUME 10.9 fL (8.7-11.7); PLATELET CLUMPS FLAG 0 (0-99); PLATELET COUNT 57 10^3/uL (150-400); RED BLOOD CELL COUNT 2.88 10^6/uL (4.18-5.33); RED CELL DISTRIBUTION WIDTH 13.8 % (11.5-15.2)
[2016-09-30 03:17] LABS: ADD SCAN? NO; LEFT SHIFT FLG 300 (0-99)
[2016-09-30 03:55] LABS: ALANINE AMINOTRANSFERASE 72 IU/L (9-52); ALBUMIN 2.3 g/dL (3.5-5.0); ALKALINE PHOSPHATASE 190 IU/L (38-126); ANION GAP 10 mEq/L (8-16); ASPARTATE AMINOTRANSFERASE 111 IU/L (14-46); BILIRUBIN,TOTAL 1.9 mg/dL (0.1-1.4); CALCIUM 7.1 mg/dL (8.5-10.4); CARBON DIOXIDE 24 mEq/l (22-31); CHLORIDE 100 mEq/L (97-110); CREATININE 0.9 mg/dL (0.6-1.0); GLOMERULAR FILTRATION RATE > 60; GLUCOSE 129 mg/dL (70-100); POTASSIUM 3.4 mEq/L (3.5-5.2); SODIUM 134 mEq/L (134-144); TOTAL PROTEIN 4.5 g/dL (6.3-8.2)
[2016-09-30 04:15] LABS: HYPOCHROMIA 2+; PLATELET ESTIMATE DECREASED (ADEQ)
[2016-09-30] MEDS: CEFEPIME HCL 2 GM in D5W 100 ML IV SCH ×3 (05:20→21:08)
[2016-09-30] MEDS ORDERED: Herbals/Supplements -Info Only PO SCH (09:00)
[2016-09-30] MEDS: ALBUMIN 25% 100 ML IV SCH ×3 (09:22→20:24)
[2016-09-30] MEDS: guaiFENesin 600 MG TAB.ER PO SCH ×2 (09:22→20:24)
[2016-09-30] MEDS: VENLAFAXINE XR 75 MG CAP PO SCH (09:22)
[2016-09-30] MEDS: ENOXAPARIN 80 MG/0.8 ML SYR SC SCH ×2 (09:22→21:15)
--- NOTE | 2016-09-30 09:42 | SOAPPROG ---
SOAP Progress Note Assessment/Plan: Assessment: 1. Small cell lung cancer - extensive R hemithorax involvement 2. Pancytopenia due to chemo (carbo/etoposide C1D1 = 09/18) 3. Atrial fibrillation w/ rapid rate 4. Malignant pleural effusion Clinically somewhat improved. Counts coming up. CTA from this admission appears worse than 08/30; however, too early to say if the chemo is working. We discussed her prognosis, which unfortunately is poor. The disease is not curable, so even the best case is that she would have a remission that might last 6-12 months and then have a recurrence. Dr. Cross feels that she will not recover much lung function given the extent of the tumor. She is having a hard time with the side effects of chemo. A palliative consult is pending today. Plan: - palliative consult - continue supportive care for a fib, etc. - can consider repeat thoracentsis if it is felt that it would help her cardiopulmonary function d/w dr cross. 09/30/16 09:32 Subjective: still feels weak, but better than yesterday. Objective: exam: Gen: chronically ill appearing OP: no mucositis Lungs: rhonchi throughout CV IIR ABd: +BS NT nD Ext: no edema Neuro: tired but alert Vital Signs Temp Pulse Resp BP Pulse Ox 36.3 C 98 17 80/54 L 93 09/29/16 23:45 09/30/16 07:00 09/30/16 06:00 09/30/16 06:00 09/30/16 06:00 Microbiology 09/29/16 02:07 Gram Stain - Final Thoracic Fluid - Aspirate Laboratory Results 09/30/16 03:00 09/30/16 03:00 09/29/16 09/30/16 10/01/16 05:59 05:59 05:59 Intake Total 2300 4632 Output Total 200 2550 Balance 2100 2082 PT 17.8 SEC (12.0-15.0) H 09/28/16 21:15 INR 1.47 (0.83-1.16) H 09/28/16 21:15 ICD10 Worksheet Patient Problems: Problems Problem Status Onset Atrial fibrillation with RVR Acute Hypoxia Acute Mass of right lung Acute Neutropenia Acute Oral thrush Acute Pleural effusion Acute Pneumonia Acute Sepsis Acute
[2016-09-30] MEDS: LEVALBUTEROL 1.25 MG/3 ML DEYVIAL IH SCH ×3 (10:20→19:39)
[2016-09-30] MEDS ORDERED: METOPROLOL TARTRATE 5 MG/5 ML INJ IVP ONE (10:55)
[2016-09-30] MEDS ORDERED: AMIODARONE HCL 540 MG in D5W 300 ML IV SCH (12:00)
[2016-09-30 12:06] LABS: BASE EXCESS -1.6 mEq/L (-2.5-2.5); BICARBONATE 25 mEq/L (22-26); MEASURED OXYGEN SATURATION 87 % (92-95); PCO2 52 mmHg (34-38); PO2 60 mmHg (65-75); TCO2 26 mEq/L (23-27)
[2016-09-30] MEDS: FILGRASTIM-SNDZ 480 MCG/0.8 ML SYR SC SCH (14:19)
--- NOTE | 2016-09-30 14:35 | PDINTPN ---
Dispatcher Relay Progress Note Assessment/Plan: Assessment: Small Cell Lung Ca: S/P chemotherapy. Large intrathoracic/mediastinal tumor burden. Unlikely to get RML and RLL airways opened as they are encased in tumor mass. Malignant pleural effusion: S/P drainage. CXR improved, but minimal improvement in symptoms, likely due to limited expansion of lung due to large malignant mass. Atrial fibrillation: Recurred after second cardioversion despite amiodarone. Rate a bit high, SBP 80s-90s. Neutropenia: Improved. On Vanco and Cefepime for suspected sepsis. Plan: Try metoprolol for rate control. Probably can stop Vanco. Follow BP closely. 35 minutes CC time addressing HR control, oxygen needs, hypotension. 40 minute family conference regarding hospice care and end of life decision making. Hospice consult today. Although overall survival for this tumor would be typically average several months to a year or more, I think she is unlikely to survive more than a few weeks. 09/30/16 14:51 Subjective: Minimal improvement in dyspnea with thoracentesis. Has discomfort related to loose dental implants. Taking minimal PO. Objective: Vital Signs Temp Pulse Resp BP Pulse Ox 36.3 C 112 H 22 H 81/64 L 92 09/29/16 23:45 09/30/16 14:00 09/30/16 14:00 09/30/16 14:00 09/30/16 14:00 Microbiology 09/29/16 02:07 Gram Stain - Final Thoracic Fluid - Aspirate Laboratory Results 09/30/16 03:00 09/30/16 03:00 09/29/16 09/30/16 10/01/16 05:59 05:59 05:59 Intake Total 2300 4632 Output Total 200 2550 Balance 2100 2082 PT 17.8 SEC (12.0-15.0) H 09/28/16 21:15 INR 1.47 (0.83-1.16) H 09/28/16 21:15 CXR: Lower right chest opacity. Fluid around upper lobe resolved. Images reviewed. Physical Exam - Physical Exam General Appearance: alert, no apparent distress EENT: other (loose denture) Neck: normal inspection Respiratory: decreased breath sounds (right), rhonchi (left), No lungs clear, No normal breath sounds Cardiac/Chest: regular rate, rhythm, No edema Abdomen: normal bowel sounds, non-tender, soft Skin: normal color, warm/dry Extremities: normal inspection Neuro/Psych: alert, normal mood/affect, oriented x 3 ICD10 Worksheet Patient Problems: Problems Problem Status Onset Atrial fibrillation with RVR Acute Hypoxia Acute Mass of right lung Acute Neutropenia Acute Oral thrush Acute Pleural effusion Acute Pneumonia Acute Sepsis Acute
[2016-09-30] MEDS ORDERED: LIDOCAINE 2% 5 ML SDV ONE (14:38)
--- NOTE | 2016-09-30 15:49 | GCON ---
[f rep st] CONSULTATION PULMONARY/CRITICAL CARE CONSULTATION DATE OF CONSULTATION: 09/29/2016 REFERRING PHYSICIAN: Akin Murillo MD REASON FOR REFERRAL: Evaluation and management of pleural effusion and atrial fibrillation. HISTORY: The patient is a 66-year-old woman known to me from hospitalization a month ago, at which time she presented with dyspnea, pleural effusion, and hilar mass. I performed bronchoscopy and fou nd right middle lobe and lower lobes were occluded by tumor, and the right upper lobe was narrowed. Biopsies were positive for small cell lung cancer. An MRI of the brain was unremarkable and a PET scan demonstrated extensive right thoracic uptake with no extrathoracic disease. She received carbo platin and etoposide 2 weeks ago. She was admitted yesterday with increasing lethargy, weakness, sh ortness of breath, and some falls. She also had a low-grade fever. She was found to have atrial fi brillation with a rapid ventricular response. She was cardioverted in the emergency department due to hypotension. She reverted to atrial fibrillation overnight. She was also neutropenic. Broad-sp ectrum antibiotics were started because of possible sepsis. Today she continues to be quite weak. She is having difficulty speaking due to a loose implant holding her dentures on. In addition, she is quite weak and short of breath. She also has some mouth pain due to the loose implant. PAST MEDICAL HISTORY: 1. Small cell lung cancer. 2. History of a CVA. MEDICATIONS: Xanax, Compazine, simvastatin, venlafaxine. ALLERGIES: None. SOCIAL HISTORY: The patient has a 40 pack-year history of smoking, which she just stopped. She navas s not drink alcohol. She lives in [place]. FAMILY HISTORY: Unremarkable. REVIEW OF SYSTEMS: A 10-point review of systems adds nothing to the history of present illness. PHYSICAL EXAMINATION: GENERAL: The patient is awake, alert, and in mild distress with tachypnea. VITALS: Her blood pressure is 87/56 with a heart rate of 127. She is afebrile. Oxygen saturations are 93% on 15 L. HEENT: Normocephalic and atraumatic. She has loose dentures that are partly hel d in place by implants. Neck: No adenopathy. Trachea is midline. CHEST: Decreased breath sounds on the right, with some rhonchi on the left. CARDIAC: Irregular tachycardia without murmur. ABDO MEN: Soft, nontender. Bowel sounds are present. EXTREMITIES: No clubbing, cyanosis, or edema. N EURO: The patient is awake and responds appropriately to commands. She is having some difficulty c ommunicating verbally due to mouth dryness as well as her loose dental implants. LABORATORY DATA: White blood count is 0.6 with a hemoglobin of 9.2, and a platelet count of 52. So dium is 130, BUN is 40 with a creatinine of 1.0. Glucose is 122. BNP is 549. Troponin is less hal n 0.01. An INR is 1.5. Venous lactate is 1.3. A chest x-ray from late last night demonstrates a s imilar appearance to the x-ray done after her thoracentesis, with opacity in the lower half of the r ight chest. Repeat chest x-ray at 11:41 today demonstrates marked increase in the amount of pleural fluid, tracking up to the apex and streaking the residual expanded lung that was seen on chest x-ra y earlier. Images reviewed. A CT scan of the chest shows extensive right hilar mediastinal tumor w ith no pulmonary emboli. The right mainstem bronchus is occluded and there was a moderate sized rig ht pleural effusion. There were interstitial infiltrates in the right upper lobe, suggesting lympha ngitic spread. Images reviewed. ASSESSMENT: 1. Atrial fibrillation with rapid ventricular response. The patient continues to have a fast heart rate despite the use of Cardizem. She also remains hypotensive. 2. Small cell lung cancer status post chemotherapy. 3. Neutropenia. This is a result of the chemotherapy. 4. Recurrent malignant pleural effusion. The patient had her pleural fluid drained a month ago, an d it has now returned. This could be contributing to her dyspnea, although even under the best of c ircumstances her right lung is unlikely to expand much and contribute to oxygenation. 5. Thrombocytopenia. The patient has no evidence of active bleeding. 6. Hypotension. This is likely due to the patient's atrial fibrillation with rapid ventricular res ponse, but she also may be dehydrated. Sepsis is also a possibility but less likely given the juan j l lactate. PLAN: 1. Agree with continuing cefepime and vancomycin. 2. Try adding amiodarone. Consult Cardiology and consider DC cardioversion. 3. Ultrasound-guided thoracentesis. 4. Hospice/palliative care consultation. 45 minutes of critical care time managing the patient's hypotension, tachycardia, and respiratory di stress. Discussed with Dr. Murillo, Dr. Wilson, the patient, her family, and the RN. /[id number]/MODL
--- NOTE | 2016-09-30 16:25 | HOSPPROG ---
Hospitalist Progress Note Assessment/Plan: 45 minutes of total critical care time spent this patient and daughter, at bedside, coordinating care between her providers including Dr. Morejon, Dr. Schumacher, addressing the issues as outlined below: - patient went back into rapid AFib overnight despite cardioversion yesterday and ongoing use of amiodarone, most likely provoked in the setting of severe illness with recurrent malignant pleural effusion - patient's chest x-ray seems indicate that her effusion is reaccumulating despite thoracentesis yesterday - repeat blood gas demonstrating acidosis with hypercapnia, which corresponds to collapsed right-sided airways and likely air trapping - patient has stage IV small cell lung cancer is aggressive and appears to be terminal at this time given that she has received 1 dose of chemotherapy but is medically decompensating at a rate will be unsustainable and will not respond to supportive care while awaiting 2nd cycle of chemotherapy - she was seen in consultation by Dr. Ngo today - her grave situation was discussed on rounds and a palliative consultation has been placed, counseled patient and her daughter that this will assist in identifying goals of care including where the patient would like to receive hospice care, inpatient versus home - she is currently breathing comfortably on 5 L nasal cannula - will dose with 5 mg of IV metoprolol now to slow her rate, will give 12.5 mg orally scheduled q.12h if she does not become hypotensive - will support her blood pressure with scheduled albumin as well as IV fluids - the nurse will contact [facility] to see if they will be able to assist in removing patient's implant - discussed with drier helper, will assist in counseling patient that do not resuscitate status would be the recommended advanced directive for this patient given that if she does code it is unlikely that she will enjoy a good quality of life after such an event Subjective: counseled the patient that her condition is worsening despite maximal medical therapy Objective: Vital Signs Temp Pulse Resp BP Pulse Ox 36.3 C 112 H 22 H 81/64 L 92 09/29/16 23:45 09/30/16 14:00 09/30/16 14:00 09/30/16 14:00 09/30/16 14:00 Microbiology 09/29/16 02:07 Gram Stain - Final Thoracic Fluid - Aspirate Laboratory Results 09/30/16 03:00 09/30/16 03:00 09/29/16 09/30/16 10/01/16 05:59 05:59 05:59 Intake Total 2300 4632 Output Total 200 2550 Balance 2099 2081 PT 17.8 SEC (12.0-15.0) H 09/28/16 21:15 INR 1.47 (0.83-1.16) H 09/28/16 21:15 - Physical Exam Constitutional: chronically ill appearing, uncomfortable Cardiovascular: irregularly irregular, tachycardia Respiratory: rhonchi ( on inspiration on the left), other ( absent breath sounds on the right) Neurologic: AAOx3 ICD10 Worksheet Patient Problems: Problems Problem Status Onset Atrial fibrillation with RVR Acute Hypoxia Acute Mass of right lung Acute Neutropenia Acute Oral thrush Acute Pleural effusion Acute Pneumonia Acute Sepsis Acute
[2016-09-30] MEDS: CHLORHEXIDINE GLUCONATE 15 ML UDL PO SCH ×2 (17:39→20:24)
[2016-09-30] MEDS: ATORVASTATIN CALCIUM 20 MG TAB PO SCH (20:24)
[2016-09-30] MEDS: ALPRAZolam 0.5 MG TAB PO SCH (21:08)
[2016-09-30 21:32] VITALS: TEMP 97.9
[2016-09-30] MEDS: ALPRAZolam 0.25 MG TAB PO PRN (22:29)
[2016-09-30] MEDS ORDERED: AMIODARONE HCL 200 ML IV SCH (23:00)
[2016-10-01] MEDS: LEVALBUTEROL 1.25 MG/3 ML DEYVIAL IH SCH ×4 (00:52→16:23)
[2016-10-01] MEDS: ALBUMIN 25% 100 ML IV SCH ×2 (02:39→08:38)
[2016-10-01] MEDS: CEFEPIME HCL 2 GM in D5W 100 ML IV SCH ×2 (05:01→13:07)
[2016-10-01] MEDS: CHLORHEXIDINE GLUCONATE 15 ML UDL PO SCH ×2 (05:01→13:06)
[2016-10-01] MEDS: guaiFENesin 600 MG TAB.ER PO SCH (08:38)
[2016-10-01] MEDS: ENOXAPARIN 80 MG/0.8 ML SYR SC SCH ×2 (08:38→10:41)
[2016-10-01] MEDS: ALPRAZolam 0.5 MG TAB PO SCH (08:39)
[2016-10-01] MEDS: VENLAFAXINE XR 75 MG CAP PO SCH (08:39)
[2016-10-01 09:32] LABS: ADD DIFF? YES; ADD MORPH? NO; ATYPICAL LYMPHOCYTE FLAG 0 (0-99); FRAGMENT RBC FLAG 0 (0-99); HEMATOCRIT 23.8 % (38.0-47.0); HEMOGLOBIN 7.7 g/dL (12.6-16.3); LIPEMIA HEMOLYSIS FLAG 80 (0-99); MEAN CELL HEMOGLOBIN 28.9 pg (27.9-34.1); MEAN CELL HEMOGLOBIN CONCENTR. 32.4 g/dL (32.4-36.7); MEAN CELL VOLUME 89.5 fL (81.5-99.8); MEAN PLATELET VOLUME 10.7 fL (8.7-11.7); PLATELET CLUMPS FLAG 0 (0-99); PLATELET COUNT 75 10^3/uL (150-400); RED BLOOD CELL COUNT 2.66 10^6/uL (4.18-5.33); RED CELL DISTRIBUTION WIDTH 14.7 % (11.5-15.2)
[2016-10-01 09:35] LABS: LEFT SHIFT FLG 300 (0-99)
[2016-10-01 09:36] LABS: ADD SCAN? NO
--- NOTE | 2016-10-01 09:36 | SOAPPROG ---
SOAP Progress Note Assessment/Plan: Assessment: this is the note of Sunday09/30/2016 Problem 1. Small cell lung cancer Problem 2. Respiratory failure Problem 3. neutropenia Problem 4. Malignant effusion Problem 5. Thrombocytopenia Problem 6. Atrial fibrillation Problem 7. History of CVA Had a nice while to his talk with her. She seems fairly comfortable though she is also in some distress. She has no new acute symptoms today. She has reverted back into atrial fibrillation with rapid ventricular response Heart rates approximately 115 when I was with her. She was cardioverted when she came in and then cardioverted on Sunday and both times is flipped back into atrial fibrillation Do not think there is a lot of benefit in trying atrial fibrillation cardioversion again. She has very severe lung disease this quite massive an overwhelming in nature. Her prognosis with her tumor is quite poor. Talked to the family yesterday about hospice as an option and they were very interested. At this time we are available to cardiovert her if that is requested. With her atrial fibrillation she needs to stay on full anticoagulation and will watch for bleeding with her low platelet count as well. Subjective: this is the note of 09/30/2016 She was feeling comfortable. She did have shortness of breath She was not complaining of any chest pain or chest tightness She told me she was not nauseated or having abdominal pain. Her legs were not painful. She is not having headache When I asked her she did not have new complaints. Objective: Vital Signs Temp Pulse Resp BP Pulse Ox 36.6 C 114 H 22 H 124/65 H 92 10/01/16 08:00 10/01/16 08:00 10/01/16 08:00 10/01/16 08:00 10/01/16 08:00 Microbiology 09/29/16 02:07 Gram Stain - Final Thoracic Fluid - Aspirate 09/30/16 10/01/16 10/02/16 05:59 05:59 05:59 Intake Total 4657 3457 Output Total 2550 1375 Balance 2082 2082 PT 17.8 SEC (12.0-15.0) H 09/28/16 21:15 INR 1.47 (0.83-1.16) H 09/28/16 21:15 Laboratory Tests 09/30/16 09/30/16 03:00 03:00 WBC 1.41 L Hct 25.0 L Plt Count 57 L Sodium 134 Potassium 3.4 L Chloride 100 Carbon Dioxide 24 Anion Gap 10 BUN 41 H Creatinine 0.9 Estimated GFR > 60 Glucose 129 H Calcium 7.1 L Total Bilirubin 1.9 H AST 111 H ALT 72 H Alkaline Phosphatase 190 H Total Protein 4.5 L Albumin 2.3 L Physical Exam - Physical Exam General Appearance: moderate distress Respiratory: rhonchi, prolonged expiration Cardiac/Chest: systolic murmur, irregularly irregular Abdomen: non-tender, soft Skin: pallor Extremities: No calf tenderness Neuro/Psych: No normal mood/affect ICD10 Worksheet Patient Problems: Problems Problem Status Onset Atrial fibrillation with RVR Acute Hypoxia Acute Mass of right lung Acute Neutropenia Acute Oral thrush Acute Pleural effusion Acute Pneumonia Acute Sepsis Acute
--- NOTE | 2016-10-01 09:48 | SOAPPROG ---
SOAP Progress Note Assessment/Plan: Assessment: this is the note of Sunday09/30/2016 Problem 1. Small cell lung cancer Problem 2. Respiratory failure Problem 3. neutropenia Problem 4. Malignant effusion Problem 5. Thrombocytopenia Problem 6. Atrial fibrillation Problem 7. History of CVA Had a nice while to his talk with her. She seems fairly comfortable though she is also in some distress. She has no new acute symptoms today. She has reverted back into atrial fibrillation with rapid ventricular response Heart rates approximately 115 when I was with her. She was cardioverted when she came in and then cardioverted on Sunday and both times is flipped back into atrial fibrillation Do not think there is a lot of benefit in trying atrial fibrillation cardioversion again. She has very severe lung disease this quite massive an overwhelming in nature. Her prognosis with her tumor is quite poor. Talked to the family yesterday about hospice as an option and they were very interested. At this time we are available to cardiovert her if that is requested. With her atrial fibrillation she needs to stay on full anticoagulation and will watch for bleeding with her low platelet count as well. this is the note of 09/30/2016 10/01/16 09:46 This is the note of Sunday10/01/2016 Problem 1. Small cell lung cancer Problem 2. Respiratory failure Problem 3. Neutropenia Problem 4. Malignant effusion Problem 5. Thrombocytopenia Problem 6. Atrial fibrillation Problem 7. History of CVA She continues to be in atrial fibrillation. She is resting comfortably right now. I have been told by the nursing staff that the the family is deciding that hospice is the best thing for her. I certainly support that and think she is a very good candidate for hospice. If there is anything more we can do from a cardiovascular point of view please let us know. We as always can cardiovert her at any time but I do not believe that that will help very much. Thank you for asking us to see her. We will sign off at this point and please call us if there is anything else we can do. This is the note of Sunday10/01/2016 Subjective: This is note of 10/01/2016. She appears fairly comfortable when I have come in to see her today. she is not responding much at this time. I am not trying hard to wake her up Rather I would let her rest at this time. Objective: Vital Signs Temp Pulse Resp BP Pulse Ox 36.6 C 114 H 22 H 124/65 H 92 10/01/16 08:00 10/01/16 08:00 10/01/16 08:00 10/01/16 08:00 10/01/16 08:00 Microbiology 09/29/16 02:07 Gram Stain - Final Thoracic Fluid - Aspirate Laboratory Results 10/01/16 09:27 09/30/16 10/01/16 10/02/16 05:59 05:59 05:59 Intake Total 4659 3457 Output Total 2550 1375 Balance 2082 2082 PT 17.8 SEC (12.0-15.0) H 09/28/16 21:15 INR 1.47 (0.83-1.16) H 09/28/16 21:15 Physical Exam - Physical Exam Cardiac/Chest: systolic murmur, irregularly irregular Abdomen: non-tender Skin: pallor Neuro/Psych: No alert ICD10 Worksheet Patient Problems: Problems Problem Status Onset Atrial fibrillation with RVR Acute Hypoxia Acute Mass of right lung Acute Neutropenia Acute Oral thrush Acute Pleural effusion Acute Pneumonia Acute Sepsis Acute
[2016-10-01 09:51] LABS: ANION GAP 15 mEq/L (8-16); CALCIUM 7.7 mg/dL (8.5-10.4); CARBON DIOXIDE 21 mEq/l (22-31); CHLORIDE 102 mEq/L (97-110); GLOMERULAR FILTRATION RATE 56; GLUCOSE 171 mg/dL (70-100); MAGNESIUM 2.3 mg/dL (1.6-2.3); POTASSIUM 3.9 mEq/L (3.5-5.2); SODIUM 138 mEq/L (134-144)
[2016-10-01 10:07] LABS: HYPOCHROMIA 1+; PLATELET ESTIMATE DECREASED (ADEQ)
[2016-10-01] MEDS ORDERED: METOPROLOL TARTRATE 25 MG TAB PO SCH (10:45)
--- NOTE | 2016-10-01 12:00 | PDIAF ---
- Diagnosis Diagnosis: Stage IV Small Cell Lung Ca, Possible post-obstructive PNA, Afib RVR Code Status: Limited Resuscitation - Medication Management Discharge Medications: Medications to Continue on Transfer ALPRAZolam [Xanax 0.25 MG (*)] 0.25 mg PO BID PRN 08/30/16 [Last Taken 09/28/16 21:00] Venlafaxine HCl [Venlafaxine HCl ER] 150 mg PO DAILY 08/30/16 [Last Taken ] Albuterol [Proventil Inhaler HFA (*)] 1 - 2 puffs IH DAILY PRN 09/29/16 [Last Taken Unknown] Prochlorperazine Maleate [Compazine 10mg (*)] 10 mg PO Q6HRS PRN 09/29/16 [Last Taken Unknown] Amoxicillin/Clavulanate Pot [Augmentin 875 MG TAB (*)] 875 mg PO BID #14 tab [Last Taken Unknown] Metoprolol Tartrate [Lopressor 25 mg (*)] 12.5 mg PO BID #30 tab 10/01/16 [Last Taken Unknown] morphINE [morphINE 2mg/ml Inj (*)] 1 - 2 mg IVP Q1HR PRN #30 dose 10/01/16 [ Last Taken Unknown] Skilled Nursing Antibiotics: Augmentin 875mg PO bid Supervisor Machining Antibiotic Stop Date: 10/08/16 Discharge Medications: Refer to the Discharge Home Medication list for PRN reason. PICC Care - Routine: Yes - Orders Services needed: Registered Nurse, Certified Supervisor Speech Oxygen: 5L NC Diet Texture: Dysphagia 1 - Pureed, Thin Liquids, Meds Whole w/Liquids Additional: Please perform frequent respiratory suctioning - Follow Up Care Current Providers and Referrals: Ariadne Lawrence MD [Primary Care Provider] - As per Instructions Rufino James MD [Medical Doctor] -
--- NOTE | 2016-10-01 13:27 | PDINTPN ---
Supervisor Finishing Progress Note Assessment/Plan: Assessment: Small Cell Lung Ca: S/P chemotherapy. Large intrathoracic/mediastinal tumor burden. Unlikely to get RML and RLL airways opened as they are encased in tumor mass. Malignant pleural effusion: S/P drainage. CXR improved, but minimal improvement in symptoms, likely due to limited expansion of lung due to large malignant mass. Atrial fibrillation: Recurred after second cardioversion despite amiodarone. Rate a bit high at 120, SBP up to 118. Neutropenia: Improved. On Vanco and Cefepime for suspected sepsis. Plan: Try metoprolol for rate control. Stop Vanco. Follow BP closely. Family has met with Hospice and they plan to go to inpatient hospice later today. 10/01/16 13:27 Subjective: Feels better, mouth less sore. Breathing a bit more comfortable. Objective: Vital Signs Temp Pulse Resp BP Pulse Ox 36.6 C 120 H 17 118/57 L 88 L 10/01/16 08:00 10/01/16 13:06 10/01/16 12:00 10/01/16 13:06 10/01/16 12:00 Microbiology 09/29/16 03:40 Urine Culture - Final Urine,Clean Catch Yael Albicans [employer] Types 09/29/16 02:07 Gram Stain - Final Thoracic Fluid - Aspirate Laboratory Results 10/01/16 09:27 10/01/16 09:27 09/30/16 10/01/16 10/02/16 05:59 05:59 05:59 Intake Total 4632 3457 Output Total 2550 1375 Balance 2082 2082 PT 17.8 SEC (12.0-15.0) H 09/28/16 21:15 INR 1.47 (0.83-1.16) H 09/28/16 21:15 Physical Exam - Physical Exam General Appearance: alert, mild distress EENT: normal ENT inspection Neck: normal inspection Respiratory: decreased breath sounds (right), rhonchi (left) Cardiac/Chest: tachycardia, irregularly irregular Abdomen: normal bowel sounds, non-tender, soft Skin: normal color, warm/dry Extremities: normal inspection Neuro/Psych: alert, normal mood/affect, oriented x 3 ICD10 Worksheet Patient Problems: Problems Problem Status Onset Atrial fibrillation with RVR Acute Hypoxia Acute Mass of right lung Acute Neutropenia Acute Oral thrush Acute Pleural effusion Acute Pneumonia Acute Sepsis Acute
[2016-10-01 14:37] VITALS: BP 98/53; PULSE 108; RESP 20; O2SAT 93
--- NOTE | 2016-10-01 15:34 | PDDCSUM ---
Discharge Summary Discharge Summary: DISCHARGE SUMMARY FOLLOW-UP ITEMS: None DATE OF ADMISSION: 09/28/2016 DATE OF DISCHARGE: 10/01/2016 DISCHARGE DIAGNOSES: 1. Atrial fibrillation with acute rapid ventricular response 2. Malignant pleural effusion 3. Possible postobstructive pneumonia 4. Possible sepsis 5. Pancytopenia secondary to chemotherapy 6. Stage IV small cell lung cancer 7. Acute hypoxic respiratory failure 8. Acute kidney injury 9. Neutropenia 10. Acute hyponatremia CONSULTATIONS: Pulmonary Critical Care, Cardiology, hospice PROCEDURES / IMAGING: Echocardiogram demonstrating no focal wall motion abnormalities, right-sided thoracentesis with 1.4 L of fluid removed, DC cardioversion, CT angiograms demonstrating no pulmonary embolism CHIEF COMPLAINT: Acute shortness of breath SUBJECTIVE: Patient remains short of breath, she is becoming frustrated as not want to continue conversing about how she feels this morning PHYSICAL EXAM ON DISCHARGE: Systolic blood pressure 1/20, heart rate 110 to 130, requiring 5 L nasal cannula , afebrile overnight, net positive 2 L overnight, chronically ill-appearing, maxillary implant removed, poor air movement in the right lung field, inspiratory rhonchi expiratory wheezes in the left lung field, irregularly irregular heart rhythm with fast rate, no lower extremity edema LABS ON DISCHARGE: Hemoglobin 7.7, white blood cell count 9600, platelets 96499, creatinine 1.0, potassium 3.9, albumin 2.3 HOSPITAL COURSE BY PROBLEM: 1. Atrial fibrillation with acute rapid ventricular response. Patient presented in rapid AFib most likely provoked by her recurrent malignant effusion and possible postobstructive pneumonia with sepsis. She became hypotensive as result of her uncontrolled tachycardia and she was urgently cardioverted by Dr. Schumacher on 09/29. She initially converted into normal sinus mechanism but went back into AFib RVR later in the day. It is suspected that she would not remain in sinus mechanism due to her underlying severe illness and consequently no further cardioversions were attempted. She also received amiodarone which did not produce appreciable effect. She then received IV metoprolol and was placed on oral low-dose metoprolol with a heart rate around 110 at time of discharge. Given that she is in a terminal condition she will not receive systemic anticoagulation moving forward. 2. Malignant pleural effusion. Patient has a large right-sided recurrent malignant pleural effusion in the setting of stage IV non-small cell lung cancer. She previously had a thoracentesis of this area and she has reaccumulated. She did receive a thoracentesis during this hospitalization and although she initially experienced improvement in her respiratory status, the effusion quickly reaccumulated. Given that the patient has extensive solid tumor that is significantly obstructing her right main stem bronchus, the utility of PleurX catheter to drain the effusion is unlikely to produce significant improvement in her respiratory state as obstruction of her airway is also significantly contributing to her respiratory failure. Consequently, no further interventions were provided. 3. Possible postobstructive pneumonia. The patient has dense airspace disease and fluid accumulation in the right lung and it is difficult to ascertain whether there is an overt infection. That being said, the patient presented neutropenic, tachycardia, subjective fevers at home, and has an obstructive airway making her high risk for postobstructive pneumonia. Consequently, she was treated with a combination of vancomycin and cefepime and will be transitioned to Augmentin at time of discharge. The Augmentin is purely for palliative reasons the patient does not immediately experienced a rebound infection during her last days of life. 4. Possible sepsis. Evidenced by subjective fever, tachycardia, neutropenia, resulting in autonomic dysregulation in the setting of infection with remote end -organ failure notably acute kidney injury, hypotension, respiratory failure. This meets all sepsis-2/ICD S-2 criteria. The patient was treated with empiric IV fluids and antibiotics. Her antibiotics are being de escalated because she is terminal and being transitioned to hospice. 5. Pancytopenia secondary to chemotherapy. She received g next during this hospitalization. Did not require blood transfusion or platelets. 6. Neutropenia. Placing her at high risk for infection and presenting with neutropenic fever, resulting in sepsis. 7. Acute kidney injury. Secondary to sepsis and hypovolemia, responded to IV fluids, creatinine normalized at time of discharge. 8. Acute hypoxic respiratory failure. Evidenced by SpO2 of 84% on room air on presentation with objective tachypnea, labored breathing, visible respiratory distress, requiring up to 15 L high-flow non-rebreather mask oxygen. This was secondary to a combination of malignant pleural effusion as well as possible postobstructive pneumonia and sepsis. She is requiring high-flow oxygen at 5 liters/minute at time of discharge and this will be continued as she transitions to hospice. 9. Acute hyponatremia. Secondary to renal hypoperfusion in the setting of all of the above. This normalized with normal saline. DISCHARGE MEDICATIONS: Please see official discharge medication reconciliation sheet in chart , Augmentin 875 twice daily, metoprolol tartrate 12.5 mg twice daily, morphine as needed. DISCHARGE INSTRUCTIONS: Patient will be transitioned to hospice inpatient care center at this time. TIME SPENT: Greater than 30 minutes were spent on direct patient care, as well as discharge planning and preparation.
== END 2016-10-01 16:00 | disposition hospice, home (50) | DRG 871 ==
LOC: F2W 09-29 02:48 → F2N 09-29 09:26
PROVIDERS: ADMIT Hospitalist; ATTEND Hospitalist
PROC: 5A2204Z Restoration of Cardiac Rhythm, Single (ICD-10-PCS; principal; 2016-09-29)
PROC: B246ZZ4 Ultrasonography of Right and Left Heart, Transesophageal (ICD-10-PCS; principal; 2016-09-29)
PROC: 5A2204Z Restoration of Cardiac Rhythm, Single (ICD-10-PCS; 2016-09-29)
PROC: 0W993ZZ Drainage of Right Pleural Cavity, Percutaneous Approach (ICD-10-PCS; 2016-09-29)
PROC: 02HV33Z Insertion of Infusion Device into Superior Vena Cava, Percutaneous Approach (ICD-10-PCS; 2016-09-29)
DX: A41.9 Sepsis, unspecified organism (principal); R65.20 Severe sepsis without septic shock; J17 Pneumonia in diseases classified elsewhere; J91.0 Malignant pleural effusion; I48.91 Unspecified atrial fibrillation; C34.90 Malignant neoplasm of unspecified part of unspecified bronchus or lung; J96.01 Acute respiratory failure with hypoxia; N17.9 Acute kidney failure, unspecified; Z99.81 Dependence on supplemental oxygen; E87.1 Hypo-osmolality and hyponatremia; D61.810 Antineoplastic chemotherapy induced pancytopenia; D70.9 Neutropenia, unspecified; I95.9 Hypotension, unspecified; M27.69 Other endosseous dental implant failure; F17.210 Nicotine dependence, cigarettes, uncomplicated; J44.9 Chronic obstructive pulmonary disease, unspecified; Z86.73 Personal history of transient ischemic attack (TIA), and cerebral infarction without residual deficits; Z51.5 Encounter for palliative care
CPT/HCPCS: 92610-GN; 96365; 97165-GO; C1751; G8987-GO-CL; G8988-GO-CL; G8996-GN-CI; G8997-GN-CH; J0153; J0282; J0692; J1650; J2250; J2405; J3370; P9041; P9047; Q5101-ZA; Q9967